=== PATIENT | male | born 1950 | race Caucasian/White ===

== ENCOUNTER 2017-01-28 06:43 | Inpatient (IN) | payer OTHER ==
[~2017-01-28] VITALS: Ht 152.4 cm; Wt 58.4 kg
[~2017-01-28 06:43] MED LIST: 0.9 % Sodium Chloride IVF; ACET650S21 PO; AMLO5TAB4 PO; CEPH-368 PO; CITA20TA9 PO; CITA40TA12 PO; CLON0.1T12 PO; CLON0.2T10 PO; DARBEPOETIN; DIPH25CA61 PO; ENOX30SY4 SQ; ERGO500017 PO; FENT1PAT76 TD; FENT1PAT9 TD; HALO5VIA2 IM; HYDR-3138 PO; INSU100C SQ-INSULIN; INSU100C5 SQ-INSULIN; INSU100I18 SQ-INSULIN; INSU100I28 SQ-INSULIN; INSU100V13 SQ; INSU100V5 SQ-INSULIN; INSU100V8 SQ; LEVE250T28 PO; LEVO100T PO; LEVO100T5 PO; LISI1TAB3 PO; LORA2VIA4 IVPush; LOSA25TA2 PO; LOSA25TA5 PO; MEGE400O PO; MEGE400O2 PO; MEGE800O PO; METO5TAB57 PO; METR500T4 PO; OXYC-302 PO; OXYC5CAP4 PO; OXYC5TAB3 PO; PANT20TA2 PO; PHEN50VI3 IVPush; POLY17PO5 PO; SEVE800T PO; SORB1SOL PO; SUCR1TAB PO; VANC1VIA3 PO; Vancomycin Per Pharmacy MC; ZOLP-413 PO; [UNRECOGNIZED DRUG - REMARK] MC
[2017-01-28] MEDS ORDERED: SODIUM CHLORIDE 0.9% 1,000 ML IV ONE ×2 (07:37→11:16)
[2017-01-28] MEDS ORDERED: SODIUM CHLORIDE FLUSH 10ML SYR IVF ONE (08:00)
[2017-01-28] MEDS ORDERED: SODIUM CHLORIDE 0.9% 1,000ML IVBOLUS ONE ×3 (08:00→14:30)
[2017-01-28] MEDS ORDERED: ONDANSETRON 2MG/ML, 2ML IVPush ONE (08:00)
[2017-01-28] MEDS ORDERED: HYDROmorphone 1 MG/ML, 1ML ONE (08:07)
[2017-01-28] MEDS ORDERED: ONDANSETRON 2MG/ML, 2ML ONE (08:07)
[2017-01-28] MEDS: HYDROmorphone 1 MG/ML, 1ML IVPush PRN ×2 (08:18→09:10)
[2017-01-28 08:29] LABS: ASPARTATE AMINO TRANSFERASE 8 U/L (15-37); BLOOD UREA NITROGEN 47 mg/dL (7-18)
[2017-01-28] MEDS ORDERED: LORazepam 2 MG/ML, 1ML IVPush ONE (09:00)
[2017-01-28] MEDS ORDERED: LORazepam 2 MG/ML, 1ML ONE ×2 (09:45→16:32)
[2017-01-28 09:53] LABS: DIFF TOTAL CELLS COUNTED 100 CELL DIFF
[2017-01-28 09:54] LABS: VERIFY COUNTS? YES
[2017-01-28 09:55] LABS: ANISOCYTOSIS 1+
[2017-01-28] MEDS ORDERED: PIPERACILLIN/TAZO/PMX 2.25GM 50 ML IVPB ONE (10:00)
[2017-01-28] MEDS ORDERED: PIPERACILLIN/TAZO 2.25 GM in SODIUM CHLORIDE 0.9% 50 ML IV ONE (10:00)
[2017-01-28] MEDS ORDERED: OMNIPAQUE 350 MG/ML, 100ML BOTTLE ONE (10:25)
[2017-01-28] MEDS ORDERED: METRONIDAZOLE PMX 500MG/100ML 100 ML IV ONE (11:00)
[2017-01-28] MEDS ORDERED: METRONIDAZOLE PMX 500MG/100ML 100 ML ONE (11:14)
[2017-01-28] MEDS: NOREPINEPHRINE 4 MG in SODIUM CHLORIDE 0.9% 246 ML IV PRN (13:02)
[2017-01-28] MEDS ORDERED: FILTER 0.22 MICRON IV PRN (14:00)
[2017-01-28] MEDS ORDERED: AMIODARONE 150 MG in DEXTROSE 5% 100 ML IV ONE (14:00)
[2017-01-28] MEDS: AMIODARONE 900 MG in DEXTROSE 5% 482 ML IV PRN (14:07)
[2017-01-28] MEDS ORDERED: SODIUM CHLORIDE 0.9% 1,000 ML IV SCH (14:10)
[2017-01-28] MEDS ORDERED: ONDANSETRON ODT 4 MG PO PRN (14:30)
[2017-01-28] MEDS ORDERED: LORazepam 2 MG/ML, 1ML IVPush PRN (14:30)
[2017-01-28] MEDS ORDERED: SODIUM CHLORIDE 0.9%, 500ML IVBOLUS PRN ×2 (14:30)
[2017-01-28] MEDS ORDERED: PHARMACY MAY ADJ FOR RENAL FX MC PRN (14:30)
[2017-01-28] MEDS ORDERED: VANCOMYCIN 1,200 MG in SODIUM CHLORIDE 0.9% 250 ML IV STA (15:29)
[2017-01-28 15:41] LABS: ASPARTATE AMINO TRANSFERASE 13 U/L (15-37); BLOOD UREA NITROGEN 48 mg/dL (7-18)
[2017-01-28 15:46] LABS: DIFF TOTAL CELLS COUNTED 100 CELL DIFF
[2017-01-28 15:54] LABS: ANISOCYTOSIS 1+; VERIFY COUNTS? YES
[2017-01-28 16:01] LABS: ABG COLLECTION SITE LEFT RADIAL; COLLATERAL CIRCULATION TESTING NORMAL
[2017-01-28] MEDS: INSULIN ASPART 100 UNITS/ML, PEN SQ-INSULIN SCH ×2 (16:40→20:55)
[2017-01-28] MEDS: LORazepam 2 MG/ML, 1ML IVPush PRN ×2 (16:41→22:49)
[2017-01-28] MEDS: PIPERACILLIN/TAZO 2.25 GM in SODIUM CHLORIDE 0.9% 50 ML IV SCH (18:21)
[2017-01-28] MEDS: morphine SULFATE 10 MG/ML, 1ML IVPush PRN (20:56)
[2017-01-29] MEDS: morphine SULFATE 10 MG/ML, 1ML IVPush PRN ×2 (00:14→14:20)
[2017-01-29] MEDS: PIPERACILLIN/TAZO 2.25 GM in SODIUM CHLORIDE 0.9% 50 ML IV SCH ×2 (03:37→16:39)
[2017-01-29 03:59] LABS: BLOOD UREA NITROGEN 52 mg/dL (7-18)
[2017-01-29 04:15] LABS: ASPARTATE AMINO TRANSFERASE 26 U/L (15-37); TOTAL IRON BINDING CAPACITY 160 mcg/dL (250-450)
[2017-01-29 04:52] VITALS: BP 123/45
[2017-01-29 05:15] LABS: DIFF TOTAL CELLS COUNTED 100 CELL DIFF
[2017-01-29 05:17] LABS: ANISOCYTOSIS 1+
[2017-01-29 05:18] LABS: VERIFY COUNTS? YES
[2017-01-29] MEDS: NOREPINEPHRINE 4 MG in SODIUM CHLORIDE 0.9% 246 ML IV PRN (05:31)
[2017-01-29] MEDS: INSULIN ASPART 100 UNITS/ML, PEN SQ-INSULIN SCH ×4 (07:00→20:06)
[2017-01-29] MEDS: LEVOTHYROXINE 100 MCG INJ IVPush SCH (08:28)
[2017-01-29] MEDS ORDERED: PHENYLEPHRINE 10 MG/ML ONE (09:23)
[2017-01-29] MEDS ORDERED: PROPOFOL 10 MG/ML, 20ML ONE (09:23)
[2017-01-29] MEDS ORDERED: ROCURONIUM 10 MG/ML ONE (09:23)
[2017-01-29] MEDS ORDERED: SUCCINYLCHOLINE 20 MG/ML, 10ML ONE (09:23)
[2017-01-29] MEDS ORDERED: VASOPRESSIN 20 UNIT/ML, 1ML ONE (09:23)
[2017-01-29 10:49] LABS: HEP B SURF. AB 91.2 mIU/mL (0.0-10.0)
[2017-01-29] MEDS ORDERED: KETAMINE 10 MG/ML, 20ML ONE (10:51)
[2017-01-29] MEDS ORDERED: FENTANYL PF 250 MCG/5ML ONE (10:51)
[2017-01-29] MEDS ORDERED: MIDAZOLAM 1 MG/ML, 2ML ONE (10:51)
[2017-01-29] MEDS ORDERED: THROMBIN 5,000 UNIT VIAL TP ONE (11:03)
[2017-01-29] MEDS ORDERED: BACITRACIN 50,000 UNIT ONE (11:03)
[2017-01-29] MEDS ORDERED: BUPIVACAINE/PF-EPI 0.5% 1:200K ONE (11:03)
[2017-01-29] MEDS ORDERED: HYDROmorphone 1 MG/ML, 1ML ONE (12:59)
[2017-01-29] MEDS ORDERED: TPN PER PHARMACY MC PRN (14:00)
[2017-01-29] MEDS ORDERED: FENTANYL PF 100 MCG/2ML IVPush PRN ×2 (14:30→16:00)
[2017-01-29] MEDS ORDERED: FENTANYL PF 2,500 MCG in SODIUM CHLORIDE 0.9% 200 ML IV PRN (15:00)
[2017-01-29] MEDS ORDERED: VASOPRESSIN 100 UNIT in SODIUM CHLORIDE 0.9% 495 ML IV PRN (15:35)
[2017-01-29] MEDS: AMIODARONE 900 MG in DEXTROSE 5% 482 ML IV PRN (15:41)
[2017-01-29] MEDS ORDERED: BISACODYL 10 MG SUPP PR PRN (16:00)
[2017-01-29] MEDS ORDERED: GLUCAGON 1 MG IM PRN (16:00)
[2017-01-29] MEDS ORDERED: LACTULOSE 20 GM/30 ML UDC NG PRN (16:00)
[2017-01-29] MEDS ORDERED: SENNOSIDES 8.8 MG/5 ML ORAL SOL NG PRN (16:00)
[2017-01-29] MEDS ORDERED: SENNA/DOCUSATE TABLET NG PRN (16:00)
[2017-01-29] MEDS ORDERED: ALBUTEROL/IPRATROPIUM 2.5MG/0.5MG, 3 ML INLINE PRN (16:00)
[2017-01-29] MEDS: PROPOFOL 100 ML IV PRN (16:38)
[2017-01-29] MEDS: PANTOPRAZOLE 80 MG in SODIUM CHLORIDE 0.9% 100 ML IV SCH (17:59)
[2017-01-29] MEDS ORDERED: AMIODARONE 150 MG in DEXTROSE 5% 100 ML IV ONE (18:00)
[2017-01-29] MEDS ORDERED: PHENYLEPHRINE 20 MG in SODIUM CHLORIDE 0.9% 248 ML IV PRN (18:30)
[2017-01-29 19:04] LABS: IS PT STATUS REG ER OR PRE ER? NO
[2017-01-29 20:37] LABS: DIFF TOTAL CELLS COUNTED 100 CELL DIFF
[2017-01-29 20:39] LABS: VERIFY COUNTS? YES
[2017-01-29] MEDS ORDERED: SODIUM CHLORIDE 0.9%, 500ML IVBOLUS ONE (21:00)
[2017-01-30 03:09] LABS: IS PT STATUS REG ER OR PRE ER? NO
[2017-01-30] MEDS: NOREPINEPHRINE 4 MG in SODIUM CHLORIDE 0.9% 246 ML IV PRN ×2 (03:36→12:19)
[2017-01-30] MEDS: PROPOFOL 100 ML IV PRN (03:37)
[2017-01-30] MEDS: PIPERACILLIN/TAZO 2.25 GM in SODIUM CHLORIDE 0.9% 50 ML IV SCH ×2 (03:38→15:28)
[2017-01-30] MEDS: PANTOPRAZOLE 80 MG in SODIUM CHLORIDE 0.9% 100 ML IV SCH ×3 (03:38→22:56)
[2017-01-30 04:21] LABS: ABG COLLECTION SITE ARTERIAL LINE
[2017-01-30 04:32] VITALS: BP 133/57
[2017-01-30 04:35] LABS: BLOOD UREA NITROGEN 29 mg/dL (7-18)
[2017-01-30 05:04] LABS: DIFF TOTAL CELLS COUNTED 100 CELL DIFF
[2017-01-30 05:06] LABS: VERIFY COUNTS? YES
[2017-01-30 05:09] LABS: ANISOCYTOSIS 1+
[2017-01-30] MEDS: INSULIN ASPART 100 UNITS/ML, PEN SQ-INSULIN SCH ×4 (08:11→20:51)
[2017-01-30] MEDS: LEVOTHYROXINE 100 MCG INJ IVPush SCH (08:12)
[2017-01-30] MEDS ORDERED: FILTER, DISP 1.2 MICRON FOR TPN/PVN IV PRN (10:30)
[2017-01-30] MEDS: AMIODARONE 900 MG in DEXTROSE 5% 482 ML IV PRN (10:50)
[2017-01-30] MEDS ORDERED: ONDANSETRON 2MG/ML, 2ML ONE (15:23)
[2017-01-30] MEDS: ONDANSETRON 2MG/ML, 2ML IVPush PRN ×2 (16:49→22:55)
[2017-01-30] MEDS ORDERED: [UNRECOGNIZED DRUG - OTHER] IV SCH (17:00)
[2017-01-30] MEDS ORDERED: FAT EMULSIONS IV SCH ×2 (17:00)
[2017-01-30] MEDS ORDERED: [UNRECOGNIZED DRUG - OTHER] IV SCH (17:00)
[2017-01-30] MEDS ORDERED: DEXTROSE 10% 500 ML IV PRN (17:00)
[2017-01-30] MEDS ORDERED: DEXTROSE 50%, 50ML SYRINGE IVPush PRN (17:00)
[2017-01-30] MEDS ORDERED: DEXTROSE 70% IV SCH ×2 (17:00)
[2017-01-30] MEDS ORDERED: AMINO ACID 10% IV SCH ×2 (17:00)
[2017-01-30] MEDS ORDERED: NOREPINEPHRINE 4 MG in SODIUM CHLORIDE 0.9% 246 ML IV PRN (17:30)
[2017-01-30] MEDS ORDERED: [UNRECOGNIZED DRUG - REMARK] MC SCH (17:30)
[2017-01-30] MEDS: FENTANYL PF 2,500 MCG in SODIUM CHLORIDE 0.9% 200 ML IV PRN (19:25)
[2017-01-30] MEDS: PIPERACILLIN/TAZO/PMX 2.25GM 50 ML IV SCH (22:55)
[2017-01-31] VITALS (7 sets, daily range): BP systolic 106–124; BP diastolic 41–57
[2017-01-31] MEDS: INSULIN ASPART 100 UNITS/ML, PEN SQ-INSULIN SCH ×2 (03:01→07:48)
[2017-01-31 05:48] LABS: ASPARTATE AMINO TRANSFERASE 17 U/L (15-37); BLOOD UREA NITROGEN 43 mg/dL (7-18)
[2017-01-31] MEDS: ONDANSETRON 2MG/ML, 2ML IVPush PRN ×3 (05:52→20:22)
[2017-01-31 05:58] LABS: ABG COLLECTION SITE LEFT RADIAL; COLLATERAL CIRCULATION TESTING NORMAL
[2017-01-31 07:53] LABS: DIFF TOTAL CELLS COUNTED 100 CELL DIFF
[2017-01-31 08:28] LABS: ANISOCYTOSIS 1+; VERIFY COUNTS? YES
[2017-01-31] MEDS: LEVOTHYROXINE 100 MCG INJ IVPush SCH (13:54)
[2017-01-31] MEDS: PIPERACILLIN/TAZO/PMX 2.25GM 50 ML IV SCH (13:55)
[2017-01-31] MEDS: HEPARIN 5,000 UNITS/ML, 1ML SQ SCH ×2 (13:56→22:27)
[2017-01-31] MEDS: INSULIN ASPART 100 UNIT/ML SQ-INSULIN SCH ×2 (14:00→20:06)
[2017-01-31] MEDS: AMIODARONE 900 MG in DEXTROSE 5% 482 ML IV PRN (14:10)
[2017-01-31] MEDS ORDERED: AMPICILLIN/SULBACTAM 3 GM in SODIUM CHLORIDE 0.9% 100 ML IV SCH (14:30)
[2017-01-31] MEDS: AMPICILLIN/SULBACTAM 3 GM in SODIUM CHLORIDE 0.9% 100 ML IV SCH (15:49)
[2017-01-31] MEDS ORDERED: FAT EMULSIONS IV SCH (17:00)
[2017-01-31] MEDS ORDERED: PANTOPRAZOLE 40 MG IV IVPush SCH (17:00)
[2017-01-31] MEDS ORDERED: AMINO ACID 10% IV SCH (17:00)
[2017-01-31] MEDS ORDERED: [UNRECOGNIZED DRUG - OTHER] IV SCH (17:00)
[2017-01-31] MEDS ORDERED: DEXTROSE 70% IV SCH (17:00)
[2017-01-31] MEDS: FENTANYL PF 2,500 MCG in SODIUM CHLORIDE 0.9% 200 ML IV PRN (20:07)
[2017-01-31] MEDS: LORazepam 2 MG/ML, 1ML IVPush PRN (22:27)
[2017-02-01] MEDS: PIPERACILLIN/TAZO/PMX 2.25GM 50 ML IV SCH (01:58)
[2017-02-01] MEDS: INSULIN ASPART 100 UNIT/ML SQ-INSULIN SCH ×4 (02:02→21:44)
[2017-02-01] MEDS ORDERED: DEXTROSE 50%, 50ML VIAL ONE (05:33)
[2017-02-01] MEDS: DEXTROSE 50%, 50ML SYRINGE IVPush PRN ×2 (05:45→13:21)
[2017-02-01 06:01] LABS: BLOOD UREA NITROGEN 31 mg/dL (7-18)
[2017-02-01] MEDS: HEPARIN 5,000 UNITS/ML, 1ML SQ SCH ×2 (06:07→16:07)
[2017-02-01 06:27] LABS: DIFF TOTAL CELLS COUNTED 100 CELL DIFF
[2017-02-01 06:30] LABS: ANISOCYTOSIS 1+; VERIFY COUNTS? YES
[2017-02-01 06:32] LABS: OVALOCYTES 1+
[2017-02-01 06:59] LABS: ABG COLLECTION SITE LEFT BRACHIAL; COLLATERAL CIRCULATION TESTING NORMAL
[2017-02-01] MEDS ORDERED: DEXTROSE 5% IV ONE (08:00)
[2017-02-01] MEDS ORDERED: POTASSIUM CHLORIDE IV ONE (08:00)
[2017-02-01] MEDS: LEVOTHYROXINE 100 MCG INJ IVPush SCH (08:03)
[2017-02-01] MEDS: ONDANSETRON 2MG/ML, 2ML IVPush PRN ×3 (11:52→21:07)
[2017-02-01 12:20] VITALS: BP 112/67
[2017-02-01] MEDS: AMPICILLIN/SULBACTAM 3 GM in SODIUM CHLORIDE 0.9% 100 ML IV SCH (15:56)
[2017-02-01] MEDS ORDERED: FILTER 0.22 MICRON IV PRN (16:30)
[2017-02-01] MEDS ORDERED: FAT EMULSIONS IV SCH (17:00)
[2017-02-01] MEDS ORDERED: [UNRECOGNIZED DRUG - OTHER] IV SCH (17:00)
[2017-02-01] MEDS ORDERED: AMINO ACID 10% IV SCH (17:00)
[2017-02-01] MEDS ORDERED: DEXTROSE 70% IV SCH (17:00)
[2017-02-01] MEDS: AMIODARONE 900 MG in DEXTROSE 5% 482 ML IV PRN (17:38)
[2017-02-01 19:39] VITALS: BP 132/70
[2017-02-01] MEDS ORDERED: PROMETHAZINE 25 MG/ML, 1ML IM PRN (23:30)
[2017-02-01] MEDS ORDERED: FENTANYL 1500 MCG/30 ML PCA IV SCH (23:30)
[2017-02-01] MEDS ORDERED: FENTANYL PF 2,500 MCG in SODIUM CHLORIDE 0.9% 200 ML IV SCH (23:45)
[2017-02-02] MEDS: ONDANSETRON 2MG/ML, 2ML IVPush SCH ×6 (00:13→21:50)
[2017-02-02] MEDS: HEPARIN 5,000 UNITS/ML, 1ML SQ SCH ×3 (00:13→15:49)
[2017-02-02 00:59] VITALS: BP 149/81
[2017-02-02] MEDS: INSULIN ASPART 100 UNIT/ML SQ-INSULIN SCH ×4 (01:45→20:24)
[2017-02-02] MEDS ORDERED: ONDANSETRON 2MG/ML, 2ML IVPush SCH (02:00)
[2017-02-02] MEDS ORDERED: ONDANSETRON ODT 4 MG PO SCH (02:30)
[2017-02-02 04:24] LABS: BLOOD UREA NITROGEN 57 mg/dL (7-18)
[2017-02-02 05:06] LABS: DIFF TOTAL CELLS COUNTED 100 CELL DIFF
[2017-02-02 05:09] LABS: ANISOCYTOSIS 1+
[2017-02-02 05:10] LABS: LARGE PLATELETS 1+; VERIFY COUNTS? YES
[2017-02-02 06:42] VITALS: BP 150/79
[2017-02-02] MEDS: LEVOTHYROXINE 100 MCG INJ IVPush SCH (08:23)
[2017-02-02 09:34] LABS: BLOOD UREA NITROGEN 63 mg/dL (7-18)
[2017-02-02 09:38] LABS: ASPARTATE AMINO TRANSFERASE 12 U/L (15-37)
[2017-02-02 13:56] VITALS: BP 160/78
[2017-02-02] MEDS: AMPICILLIN/SULBACTAM 3 GM in SODIUM CHLORIDE 0.9% 100 ML IV SCH (15:49)
[2017-02-02] MEDS ORDERED: FAT EMULSIONS IV SCH ×3 (17:00)
[2017-02-02] MEDS ORDERED: [UNRECOGNIZED DRUG - OTHER] IV SCH (17:00)
[2017-02-02] MEDS ORDERED: DEXTROSE 70% IV SCH ×3 (17:00)
[2017-02-02] MEDS ORDERED: AMINO ACID 10% IV SCH ×3 (17:00)
[2017-02-02] MEDS ORDERED: [UNRECOGNIZED DRUG - OTHER] IV SCH (17:00)
[2017-02-02] MEDS ORDERED: [UNRECOGNIZED DRUG - OTHER] IV SCH (17:00)
[2017-02-02] MEDS: FILTER, DISP 1.2 MICRON FOR TPN/PVN IV PRN (18:18)
[2017-02-02 19:40] VITALS: BP 151/73
[2017-02-02 23:02] VITALS: BP 143/73
[2017-02-02] MEDS: morphine SULFATE 10 MG/ML, 1ML IVPush PRN (23:03)
[2017-02-02] MEDS ORDERED: FENTANYL PF 2,500 MCG in SODIUM CHLORIDE 0.9% 200 ML IV SCH (23:45)
[2017-02-03 00:50] VITALS: BP 151/70
[2017-02-03] MEDS: INSULIN ASPART 100 UNIT/ML SQ-INSULIN SCH ×4 (02:00→20:00)
[2017-02-03] MEDS: HEPARIN 5,000 UNITS/ML, 1ML SQ SCH ×4 (02:59→23:22)
[2017-02-03] MEDS: ONDANSETRON 2MG/ML, 2ML IVPush SCH ×5 (03:17→21:29)
[2017-02-03 03:41] LABS: BLOOD UREA NITROGEN 38 mg/dL (7-18)
[2017-02-03 07:04] VITALS: BP 174/71
[2017-02-03] MEDS ORDERED: POTASSIUM PHOSPHATE 22 MEQ in SODIUM CHLORIDE 0.9% 250 ML IV ONE (08:30)
[2017-02-03 09:20] LABS: ASPARTATE AMINO TRANSFERASE 9 U/L (15-37); BLOOD UREA NITROGEN 45 mg/dL (7-18)
[2017-02-03] MEDS: LEVOTHYROXINE 100 MCG INJ IVPush SCH (09:44)
[2017-02-03 14:44] VITALS: BP 176/77
[2017-02-03] MEDS ORDERED: MORPHINE SULFATE 4 MG/ML, 1ML ONE (14:46)
[2017-02-03] MEDS: morphine SULFATE 10 MG/ML, 1ML IVPush PRN ×2 (14:53→23:21)
[2017-02-03] MEDS: AMPICILLIN/SULBACTAM 3 GM in SODIUM CHLORIDE 0.9% 100 ML IV SCH (15:49)
[2017-02-03] MEDS ORDERED: DEXTROSE 70% IV SCH (17:00)
[2017-02-03] MEDS ORDERED: [UNRECOGNIZED DRUG - OTHER] IV SCH (17:00)
[2017-02-03] MEDS ORDERED: FAT EMULSIONS IV SCH (17:00)
[2017-02-03] MEDS ORDERED: AMINO ACID 10% IV SCH (17:00)
[2017-02-03] MEDS: FILTER, DISP 1.2 MICRON FOR TPN/PVN IV PRN (18:19)
[2017-02-03 19:24] VITALS: BP 167/79
[2017-02-03] MEDS ORDERED: PHARMACY MAY ADJ FOR RENAL FX MC PRN (20:30)
[2017-02-03] MEDS ORDERED: TPN PER PHARMACY MC PRN (20:30)
[2017-02-03] MEDS ORDERED: ALBUTEROL/IPRATROPIUM 2.5MG/0.5MG, 3 ML INLINE PRN (20:30)
[2017-02-03] MEDS ORDERED: BISACODYL 10 MG SUPP PR PRN (20:30)
[2017-02-03] MEDS ORDERED: FILTER 0.22 MICRON IV PRN (20:30)
[2017-02-03] MEDS ORDERED: LACTULOSE 20 GM/30 ML UDC NG PRN (20:30)
[2017-02-03] MEDS ORDERED: GLUCAGON 1 MG IM PRN (20:30)
[2017-02-03] MEDS: FENTANYL PF 2,500 MCG in SODIUM CHLORIDE 0.9% 200 ML IV SCH (23:45)
[2017-02-04] MEDS ORDERED: ALBUTEROL/IPRATROPIUM 2.5MG/0.5MG, 3 ML NPPB PRN (00:30)
[2017-02-04 01:45] VITALS: BP 168/65
[2017-02-04] MEDS: INSULIN ASPART 100 UNIT/ML SQ-INSULIN SCH ×4 (03:00→20:00)
[2017-02-04] MEDS: ONDANSETRON 2MG/ML, 2ML IVPush SCH ×6 (03:04→20:51)
[2017-02-04] MEDS: FENTANYL PF 2,500 MCG in SODIUM CHLORIDE 0.9% 200 ML IV SCH (03:50)
[2017-02-04 06:22] LABS: ASPARTATE AMINO TRANSFERASE 12 U/L (15-37); BLOOD UREA NITROGEN 65 mg/dL (7-18)
[2017-02-04] MEDS: morphine SULFATE 10 MG/ML, 1ML IVPush PRN ×3 (07:27→23:58)
[2017-02-04 07:38] VITALS: BP 138/68
[2017-02-04] MEDS: LEVOTHYROXINE 100 MCG INJ IVPush SCH (09:40)
[2017-02-04] MEDS: HEPARIN 5,000 UNITS/ML, 1ML SQ SCH ×2 (09:40→17:45)
[2017-02-04] MEDS: ALBUMIN HUMAN 25% 100 ML IV SCH ×2 (14:05→20:34)
[2017-02-04 14:45] VITALS: BP 170/74
[2017-02-04] MEDS: AMPICILLIN/SULBACTAM 3 GM in SODIUM CHLORIDE 0.9% 100 ML IV SCH (15:45)
[2017-02-04 16:03] VITALS: BP 170/74
[2017-02-04] MEDS ORDERED: DEXTROSE 70% IV SCH (17:00)
[2017-02-04] MEDS ORDERED: FAT EMULSIONS IV SCH (17:00)
[2017-02-04] MEDS ORDERED: AMINO ACID 10% IV SCH (17:00)
[2017-02-04] MEDS ORDERED: [UNRECOGNIZED DRUG - OTHER] IV SCH (17:00)
[2017-02-04] MEDS: FILTER, DISP 1.2 MICRON FOR TPN/PVN IV PRN (17:45)
[2017-02-04 18:56] VITALS: BP 178/90
[2017-02-05 02:00] VITALS: BP 165/70
[2017-02-05] MEDS: HEPARIN 5,000 UNITS/ML, 1ML SQ SCH ×3 (02:00→17:18)
[2017-02-05] MEDS: INSULIN ASPART 100 UNIT/ML SQ-INSULIN SCH ×4 (02:00→20:00)
[2017-02-05] MEDS: ALBUMIN HUMAN 25% 100 ML IV SCH ×2 (02:00→08:07)
[2017-02-05] MEDS: DEXTROSE 50%, 50ML SYRINGE IVPush PRN ×3 (02:45→14:40)
[2017-02-05] MEDS: ONDANSETRON 2MG/ML, 2ML IVPush SCH ×6 (05:00→21:02)
[2017-02-05] MEDS: morphine SULFATE 10 MG/ML, 1ML IVPush PRN ×2 (06:00→21:03)
[2017-02-05 06:38] LABS: BLOOD UREA NITROGEN 86 mg/dL (7-18)
[2017-02-05 07:54] VITALS: BP 192/70
[2017-02-05] MEDS: LEVOTHYROXINE 100 MCG INJ IVPush SCH (08:07)
[2017-02-05 09:46] LABS: ASPARTATE AMINO TRANSFERASE 5 U/L (15-37); BLOOD UREA NITROGEN 67 mg/dL (7-18)
[2017-02-05] MEDS: METRONIDAZOLE PMX 500MG/100ML 100 ML IV SCH ×2 (11:47→19:26)
[2017-02-05 14:17] VITALS: BP 158/58
[2017-02-05] MEDS: AMPICILLIN/SULBACTAM 3 GM in SODIUM CHLORIDE 0.9% 100 ML IV SCH (15:26)
[2017-02-05] MEDS ORDERED: AMINO ACID 10% IV SCH (17:00)
[2017-02-05] MEDS ORDERED: DEXTROSE 70% IV SCH (17:00)
[2017-02-05] MEDS ORDERED: [UNRECOGNIZED DRUG - OTHER] IV SCH (17:00)
[2017-02-05] MEDS ORDERED: FAT EMULSIONS IV SCH (17:00)
[2017-02-05 19:25] VITALS: BP 170/76
[2017-02-06] MEDS: INSULIN ASPART 100 UNIT/ML SQ-INSULIN SCH ×4 (01:54→20:32)
[2017-02-06] MEDS: ONDANSETRON 2MG/ML, 2ML IVPush SCH ×6 (01:55→22:01)
[2017-02-06] MEDS: HEPARIN 5,000 UNITS/ML, 1ML SQ SCH ×3 (01:55→20:09)
[2017-02-06 01:56] VITALS: BP 156/72
[2017-02-06] MEDS: METRONIDAZOLE PMX 500MG/100ML 100 ML IV SCH ×3 (03:00→20:09)
[2017-02-06 05:54] LABS: BLOOD UREA NITROGEN 50 mg/dL (7-18)
[2017-02-06 07:05] VITALS: BP 151/76
[2017-02-06] MEDS: morphine SULFATE 10 MG/ML, 1ML IVPush PRN ×3 (07:47→22:01)
[2017-02-06] MEDS: LEVOTHYROXINE 100 MCG INJ IVPush SCH (07:47)
[2017-02-06 10:27] LABS: ASPARTATE AMINO TRANSFERASE 6 U/L (15-37)
[2017-02-06] MEDS: FENTANYL PF 2,500 MCG in SODIUM CHLORIDE 0.9% 200 ML IV SCH (10:37)
[2017-02-06 15:45] VITALS: BP 159/76
[2017-02-06] MEDS: AMPICILLIN/SULBACTAM 3 GM in SODIUM CHLORIDE 0.9% 100 ML IV SCH (15:53)
[2017-02-06] MEDS ORDERED: AMINO ACID 10% IV SCH (17:00)
[2017-02-06] MEDS ORDERED: FAT EMULSIONS IV SCH (17:00)
[2017-02-06] MEDS ORDERED: DEXTROSE 70% IV SCH (17:00)
[2017-02-06] MEDS ORDERED: [UNRECOGNIZED DRUG - OTHER] IV SCH (17:00)
[2017-02-06] MEDS: FILTER, DISP 1.2 MICRON FOR TPN/PVN IV PRN (17:41)
[2017-02-06 20:00] VITALS: BP 144/69
[2017-02-06] MEDS ORDERED: FENTANYL PF 2,500 MCG in SODIUM CHLORIDE 0.9% 200 ML IV SCH (23:45)
[2017-02-07 02:00] VITALS: BP 126/61
[2017-02-07] MEDS: ONDANSETRON 2MG/ML, 2ML IVPush SCH ×3 (02:52→11:46)
[2017-02-07 03:30] LABS: BLOOD UREA NITROGEN 76 mg/dL (7-18)
[2017-02-07] MEDS: morphine SULFATE 10 MG/ML, 1ML IVPush PRN ×2 (03:52→11:45)
[2017-02-07] MEDS: HEPARIN 5,000 UNITS/ML, 1ML SQ SCH ×3 (03:52→21:26)
[2017-02-07] MEDS: INSULIN ASPART 100 UNIT/ML SQ-INSULIN SCH ×4 (03:52→21:26)
[2017-02-07] MEDS: METRONIDAZOLE PMX 500MG/100ML 100 ML IV SCH ×3 (03:53→23:49)
[2017-02-07 08:00] VITALS: BP 132/62
[2017-02-07] MEDS: LEVOTHYROXINE 100 MCG INJ IVPush SCH (11:45)
[2017-02-07 13:15] VITALS: BP 171/67
[2017-02-07] MEDS ORDERED: [UNRECOGNIZED DRUG - OTHER] IV SCH (17:00)
[2017-02-07] MEDS ORDERED: AMINO ACID 10% IV SCH (17:00)
[2017-02-07] MEDS ORDERED: FILTER, DISP 1.2 MICRON FOR TPN/PVN IV PRN (17:00)
[2017-02-07] MEDS ORDERED: DEXTROSE 70% IV SCH (17:00)
[2017-02-07] MEDS ORDERED: FAT EMULSIONS IV SCH (17:00)
[2017-02-07] MEDS: AMPICILLIN/SULBACTAM 3 GM in SODIUM CHLORIDE 0.9% 100 ML IV SCH (17:51)
[2017-02-07 20:00] VITALS: BP 157/61
[2017-02-07] MEDS ORDERED: FENTANYL PF 1,000 MCG in SODIUM CHLORIDE 0.9% 80 ML IV SCH (23:45)
[2017-02-07] MEDS: ONDANSETRON 2MG/ML, 2ML IVPush PRN (23:49)
[2017-02-08 02:00] VITALS: BP 148/71
[2017-02-08] MEDS: INSULIN ASPART 100 UNIT/ML SQ-INSULIN SCH (02:00)
[2017-02-08 04:50] LABS: BLOOD UREA NITROGEN 49 mg/dL (7-18)
[2017-02-08] MEDS: METRONIDAZOLE PMX 500MG/100ML 100 ML IV SCH ×3 (06:29→23:17)
[2017-02-08] MEDS: HEPARIN 5,000 UNITS/ML, 1ML SQ SCH ×3 (06:29→21:08)
[2017-02-08 07:07] VITALS: BP 135/69
[2017-02-08] MEDS ORDERED: NALOXONE 0.4 MG/ML, 1ML ONE (08:14)
[2017-02-08 08:15] VITALS: BP 153/77
[2017-02-08] MEDS ORDERED: NALOXONE 0.4 MG/ML, 1ML IVPush PRN (08:30)
[2017-02-08] MEDS ORDERED: PIPERACILLIN/TAZO 2.25 GM in SODIUM CHLORIDE 0.9% 50 ML IV SCH (09:00)
[2017-02-08] MEDS ORDERED: PIPERACILLIN/TAZO 0.75 GM in SODIUM CHLORIDE 0.9% 50 ML IV SCH (09:00)
[2017-02-08 09:06] VITALS: BP 123/68
[2017-02-08] MEDS ORDERED: PIPERACILLIN/TAZO/PMX 2.25GM 50 ML IV SCH (09:13)
[2017-02-08 10:05] LABS: ASPARTATE AMINO TRANSFERASE 6 U/L (15-37); BLOOD UREA NITROGEN 53 mg/dL (7-18)
[2017-02-08] MEDS ORDERED: ACETAMINOPHEN 325 MG TABLET ONE (10:31)
[2017-02-08] MEDS: LEVOTHYROXINE 100 MCG INJ IVPush SCH (10:40)
[2017-02-08] MEDS: ACETAMINOPHEN 325 MG TABLET PO PRN (10:40)
[2017-02-08] MEDS: INSULIN ASPART 100 UNITS/ML, PEN SQ-INSULIN SCH ×4 (10:41→21:09)
[2017-02-08 12:31] VITALS: BP 131/67
[2017-02-08] MEDS ORDERED: FILTER, DISP 1.2 MICRON FOR TPN/PVN IV PRN (17:00)
[2017-02-08] MEDS ORDERED: FAT EMULSIONS IV SCH ×2 (17:00)
[2017-02-08] MEDS ORDERED: AMINO ACID 10% IV SCH ×2 (17:00)
[2017-02-08] MEDS ORDERED: [UNRECOGNIZED DRUG - OTHER] IV SCH ×2 (17:00)
[2017-02-08] MEDS ORDERED: DEXTROSE 70% IV SCH ×2 (17:00)
[2017-02-08] MEDS: morphine SULFATE 10 MG/ML, 1ML IVPush PRN (17:07)
[2017-02-08] MEDS: ONDANSETRON 2MG/ML, 2ML IVPush PRN (17:07)
[2017-02-08] MEDS ORDERED: OMNIPAQUE 350 MG/ML, 100ML BOTTLE ONE (18:45)
[2017-02-08 20:00] VITALS: BP 137/61
[2017-02-08] MEDS ORDERED: PIPERACILLIN/TAZO 2.25 GM in SODIUM CHLORIDE 0.9% 100 ML IV SCH (21:13)
[2017-02-08] MEDS ORDERED: FENTANYL PF 1,000 MCG in SODIUM CHLORIDE 0.9% 80 ML IV SCH (23:45)
[2017-02-09 02:00] VITALS: BP 136/66
[2017-02-09] MEDS ORDERED: MORPHINE SULFATE 4 MG/ML, 1ML ONE (04:33)
[2017-02-09] MEDS: ONDANSETRON 2MG/ML, 2ML IVPush PRN ×2 (04:38→08:35)
[2017-02-09] MEDS: morphine SULFATE 10 MG/ML, 1ML IVPush PRN ×4 (04:38→22:23)
[2017-02-09 05:24] LABS: BLOOD UREA NITROGEN 69 mg/dL (7-18)
[2017-02-09] MEDS: HEPARIN 5,000 UNITS/ML, 1ML SQ SCH ×3 (05:36→22:19)
[2017-02-09] MEDS: INSULIN ASPART 100 UNITS/ML, PEN SQ-INSULIN SCH ×4 (07:00→22:32)
[2017-02-09 07:32] VITALS: BP 126/65
[2017-02-09] MEDS: METRONIDAZOLE PMX 500MG/100ML 100 ML IV SCH (08:05)
[2017-02-09] MEDS: LEVOTHYROXINE 100 MCG INJ IVPush SCH (08:05)
[2017-02-09] MEDS ORDERED: METOCLOPRAMIDE IV SCH (10:30)
[2017-02-09] MEDS: METOCLOPRAMIDE 5 MG/ML, 2ML IV SCH ×2 (10:48→17:00)
[2017-02-09 12:42] VITALS: BP 138/70
[2017-02-09] MEDS: PIPERACILLIN/TAZO 2.25 GM in NS 50 ML IV SCH (14:20)
[2017-02-09] MEDS: FILTER, DISP 1.2 MICRON FOR TPN/PVN IV PRN (16:58)
[2017-02-09] MEDS ORDERED: DEXTROSE 70% IV SCH (17:00)
[2017-02-09] MEDS ORDERED: AMINO ACID 10% IV SCH (17:00)
[2017-02-09] MEDS ORDERED: [UNRECOGNIZED DRUG - OTHER] IV SCH (17:00)
[2017-02-09] MEDS ORDERED: FAT EMULSIONS IV SCH (17:00)
[2017-02-09 20:19] VITALS: BP 126/63
[2017-02-09] MEDS: MEGESTROL ORAL.SUSP 40 MG/ML PO SCH (22:20)
[2017-02-10] MEDS: morphine SULFATE 10 MG/ML, 1ML IVPush PRN ×5 (03:00→22:47)
[2017-02-10] MEDS: METOCLOPRAMIDE 5 MG/ML, 2ML IV SCH ×3 (03:00→17:53)
[2017-02-10] MEDS: PIPERACILLIN/TAZO 2.25 GM in NS 50 ML IV SCH ×2 (03:00→13:44)
[2017-02-10 03:18] VITALS: BP 123/63
[2017-02-10] MEDS: HEPARIN 5,000 UNITS/ML, 1ML SQ SCH ×3 (04:00→20:00)
[2017-02-10 06:16] LABS: BLOOD UREA NITROGEN 43 mg/dL (7-18)
[2017-02-10 06:40] VITALS: BP 123/60
[2017-02-10] MEDS: INSULIN ASPART 100 UNITS/ML, PEN SQ-INSULIN SCH ×4 (07:00→22:46)
[2017-02-10] MEDS ORDERED: MORPHINE SULFATE 4 MG/ML, 1ML ONE ×4 (08:11→22:35)
[2017-02-10] MEDS: LEVOTHYROXINE 100 MCG INJ IVPush SCH (08:22)
[2017-02-10] MEDS: MEGESTROL ORAL.SUSP 40 MG/ML PO SCH ×2 (08:23→22:46)
[2017-02-10] MEDS ORDERED: POLYETHYLENE GLYCOL 17 GM PACKET PO PRN (10:00)
[2017-02-10 12:57] VITALS: BP 153/62
[2017-02-10] MEDS ORDERED: FAT EMULSIONS IV SCH (17:00)
[2017-02-10] MEDS ORDERED: [UNRECOGNIZED DRUG - OTHER] IV SCH (17:00)
[2017-02-10] MEDS ORDERED: AMINO ACID 10% IV SCH (17:00)
[2017-02-10] MEDS ORDERED: DEXTROSE 70% IV SCH (17:00)
[2017-02-10] MEDS: FILTER, DISP 1.2 MICRON FOR TPN/PVN IV PRN (17:33)
[2017-02-10 20:03] VITALS: BP 150/71
[2017-02-11 01:59] VITALS: BP 145/68
[2017-02-11] MEDS: PIPERACILLIN/TAZO 2.25 GM in NS 50 ML IV SCH ×2 (02:39→15:01)
[2017-02-11] MEDS: METOCLOPRAMIDE 5 MG/ML, 2ML IV SCH ×3 (02:39→17:40)
[2017-02-11] MEDS: morphine SULFATE 10 MG/ML, 1ML IVPush PRN ×4 (02:52→20:11)
[2017-02-11] MEDS: HEPARIN 5,000 UNITS/ML, 1ML SQ SCH ×3 (04:00→20:12)
[2017-02-11 06:09] LABS: ASPARTATE AMINO TRANSFERASE 9 U/L (15-37); BLOOD UREA NITROGEN 67 mg/dL (7-18)
[2017-02-11] MEDS: INSULIN ASPART 100 UNITS/ML, PEN SQ-INSULIN SCH ×4 (07:00→20:13)
[2017-02-11 07:47] VITALS: BP 155/70
[2017-02-11] MEDS: POLYETHYLENE GLYCOL 17 GM PACKET PO SCH (09:00)
[2017-02-11] MEDS ORDERED: MORPHINE SULFATE 4 MG/ML, 1ML ONE ×3 (09:33→20:04)
[2017-02-11] MEDS: LEVOTHYROXINE 100 MCG INJ IVPush SCH (09:38)
[2017-02-11] MEDS: MEGESTROL ORAL.SUSP 40 MG/ML PO SCH ×2 (09:38→20:12)
[2017-02-11 15:37] VITALS: BP 173/74
[2017-02-11] MEDS ORDERED: FAT EMULSIONS IV SCH (17:00)
[2017-02-11] MEDS ORDERED: AMINO ACID 10% IV SCH (17:00)
[2017-02-11] MEDS ORDERED: DEXTROSE 70% IV SCH (17:00)
[2017-02-11] MEDS ORDERED: [UNRECOGNIZED DRUG - OTHER] IV SCH (17:00)
[2017-02-11] MEDS: FILTER, DISP 1.2 MICRON FOR TPN/PVN IV PRN (17:40)
[2017-02-11 20:04] VITALS: BP 157/64
[2017-02-11] MEDS: ONDANSETRON 2MG/ML, 2ML IVPush PRN (20:11)
[2017-02-12] MEDS ORDERED: MORPHINE SULFATE 4 MG/ML, 1ML ONE (01:14)
[2017-02-12] MEDS: morphine SULFATE 10 MG/ML, 1ML IVPush PRN ×3 (01:17→17:42)
[2017-02-12 02:03] VITALS: BP 163/62
[2017-02-12] MEDS: METOCLOPRAMIDE 5 MG/ML, 2ML IV SCH ×3 (03:19→17:42)
[2017-02-12] MEDS: PIPERACILLIN/TAZO 2.25 GM in NS 50 ML IV SCH ×2 (03:19→15:58)
[2017-02-12] MEDS: HEPARIN 5,000 UNITS/ML, 1ML SQ SCH ×3 (03:19→22:19)
[2017-02-12 04:09] LABS: ASPARTATE AMINO TRANSFERASE 6 U/L (15-37); BLOOD UREA NITROGEN 83 mg/dL (7-18)
[2017-02-12 04:12] LABS: TOTAL IRON BINDING CAPACITY 129 mcg/dL (250-450)
[2017-02-12 06:50] VITALS: BP 171/75
[2017-02-12] MEDS: POLYETHYLENE GLYCOL 17 GM PACKET PO SCH (09:00)
[2017-02-12] MEDS: MEGESTROL ORAL.SUSP 40 MG/ML PO SCH ×2 (09:04→22:19)
[2017-02-12] MEDS: ONDANSETRON 2MG/ML, 2ML IVPush PRN (09:05)
[2017-02-12] MEDS: INSULIN ASPART 100 UNITS/ML, PEN SQ-INSULIN SCH ×4 (09:05→22:20)
[2017-02-12] MEDS: ACETAMINOPHEN 325 MG TABLET PO PRN (10:20)
[2017-02-12 12:38] VITALS: BP 155/67
[2017-02-12] MEDS: LEVOTHYROXINE 100 MCG INJ IVPush SCH (12:57)
[2017-02-12 20:00] VITALS: BP 126/86
[2017-02-12] MEDS: FAMOTIDINE 20 MG TABLET PO SCH (22:19)
[2017-02-13 01:15] VITALS: BP 146/69
[2017-02-13] MEDS: METOCLOPRAMIDE 5 MG/ML, 2ML IV SCH ×3 (04:29→18:22)
[2017-02-13] MEDS: PIPERACILLIN/TAZO 2.25 GM in NS 50 ML IV SCH ×2 (04:29→14:41)
[2017-02-13] MEDS: HEPARIN 5,000 UNITS/ML, 1ML SQ SCH ×3 (04:31→20:14)
[2017-02-13 06:22] LABS: ASPARTATE AMINO TRANSFERASE 15 U/L (15-37); BLOOD UREA NITROGEN 55 mg/dL (7-18)
[2017-02-13] MEDS: POLYETHYLENE GLYCOL 17 GM PACKET PO SCH (08:04)
[2017-02-13 08:08] VITALS: BP 137/73
[2017-02-13] MEDS: LEVOTHYROXINE 100 MCG INJ IVPush SCH (08:57)
[2017-02-13] MEDS: MEGESTROL ORAL.SUSP 40 MG/ML PO SCH ×2 (08:58→20:15)
[2017-02-13] MEDS: INSULIN ASPART 100 UNITS/ML, PEN SQ-INSULIN SCH ×4 (08:58→20:28)
[2017-02-13] MEDS: morphine SULFATE 10 MG/ML, 1ML IVPush PRN ×2 (09:29→12:39)
[2017-02-13] MEDS: ONDANSETRON 2MG/ML, 2ML IVPush PRN (12:12)
[2017-02-13 14:40] VITALS: BP 139/54
[2017-02-13 20:00] VITALS: BP 160/64
[2017-02-13] MEDS: FAMOTIDINE 20 MG TABLET PO SCH (20:14)
[2017-02-14 02:00] VITALS: BP 163/73
[2017-02-14] MEDS: PIPERACILLIN/TAZO 2.25 GM in NS 50 ML IV SCH ×2 (02:20→14:32)
[2017-02-14] MEDS: METOCLOPRAMIDE 5 MG/ML, 2ML IV SCH ×3 (02:20→18:15)
[2017-02-14] MEDS: morphine SULFATE 10 MG/ML, 1ML IVPush PRN ×4 (02:35→23:03)
[2017-02-14] MEDS: HEPARIN 5,000 UNITS/ML, 1ML SQ SCH ×3 (04:02→21:01)
[2017-02-14 06:32] LABS: BLOOD UREA NITROGEN 90 mg/dL (7-18)
[2017-02-14 06:42] VITALS: BP 159/92
[2017-02-14] MEDS: POLYETHYLENE GLYCOL 17 GM PACKET PO SCH (07:24)
[2017-02-14] MEDS: LEVOTHYROXINE 100 MCG INJ IVPush SCH (07:32)
[2017-02-14] MEDS: MEGESTROL ORAL.SUSP 40 MG/ML PO SCH ×2 (07:33→21:00)
[2017-02-14] MEDS: INSULIN ASPART 100 UNITS/ML, PEN SQ-INSULIN SCH ×4 (07:41→21:00)
[2017-02-14 13:47] VITALS: BP 167/78
[2017-02-14 20:00] VITALS: BP 172/69
[2017-02-14] MEDS: FAMOTIDINE 20 MG TABLET PO SCH (21:01)
[2017-02-14] MEDS ORDERED: MORPHINE SULFATE 4 MG/ML, 1ML ONE (22:58)
[2017-02-15 02:00] VITALS: BP 154/74
[2017-02-15] MEDS ORDERED: MORPHINE SULFATE 4 MG/ML, 1ML ONE (02:12)
[2017-02-15] MEDS: morphine SULFATE 10 MG/ML, 1ML IVPush PRN ×2 (02:17→11:52)
[2017-02-15] MEDS: HEPARIN 5,000 UNITS/ML, 1ML SQ SCH ×2 (03:11→12:00)
[2017-02-15] MEDS: METOCLOPRAMIDE 5 MG/ML, 2ML IV SCH ×2 (03:12→08:20)
[2017-02-15] MEDS: PIPERACILLIN/TAZO 2.25 GM in NS 50 ML IV SCH ×2 (03:12→14:47)
[2017-02-15 05:44] LABS: BLOOD UREA NITROGEN 51 mg/dL (7-18)
[2017-02-15] MEDS: INSULIN ASPART 100 UNITS/ML, PEN SQ-INSULIN SCH ×2 (08:19→11:58)
[2017-02-15] MEDS: POLYETHYLENE GLYCOL 17 GM PACKET PO SCH (08:20)
[2017-02-15] MEDS: LEVOTHYROXINE 100 MCG INJ IVPush SCH (08:20)
[2017-02-15] MEDS: MEGESTROL ORAL.SUSP 40 MG/ML PO SCH ×2 (08:21→08:30)
[2017-02-15 10:00] VITALS: BP 132/57
[2017-02-15] MEDS: ONDANSETRON 2MG/ML, 2ML IVPush PRN (14:51)
[2017-02-15 14:58] VITALS: BP 145/68
[2017-02-15] MEDS ORDERED: INSU100I18 SQ-INSULIN (15:04)
[2017-02-15] MEDS ORDERED: LEVO100V IVPush (15:04)
[2017-02-15] MEDS ORDERED: MEGE400O2 PO (15:04)
== END 2017-02-15 16:20 | DRG 853 ==
LOC: ED 09:03 → EDIP 10:25 → CCU 12:09 → 5SO 02-01 12:06 → 4EST 02-03 16:21
PROVIDERS: ADMIT Internal Medicine; ATTEND Internal Medicine
PROC: 0DB80ZZ Excision of Small Intestine, Open Approach (ICD-10-PCS; 2017-01-29)
PROC: 0DTJ0ZZ Resection of Appendix, Open Approach (ICD-10-PCS; 2017-01-29)
PROC: 5A1D60Z (ICD-10-PCS; 2017-01-29)
PROC: 30233N1 Transfusion of Nonautologous Red Blood Cells into Peripheral Vein, Percutaneous Approach (ICD-10-PCS; 2017-01-29)
PROC: 0DTF0ZZ Resection of Right Large Intestine, Open Approach (ICD-10-PCS; principal; 2017-01-29 10:45)
PROC: 0WJP4ZZ Inspection of Gastrointestinal Tract, Percutaneous Endoscopic Approach (ICD-10-PCS; 2017-01-29 10:45)
DX: A41.59 Other Gram-negative sepsis (principal); N18.6 End stage renal disease; K35.2 Acute appendicitis with generalized peritonitis; E43 Unspecified severe protein-calorie malnutrition; R65.21 Severe sepsis with septic shock; D61.818 Other pancytopenia; A04.9 Bacterial intestinal infection, unspecified; I12.0 Hypertensive chronic kidney disease with stage 5 chronic kidney disease or end stage renal disease; I48.91 Unspecified atrial fibrillation; I25.10 Atherosclerotic heart disease of native coronary artery without angina pectoris; D63.1 Anemia in chronic kidney disease; E03.9 Hypothyroidism, unspecified; E11.22 Type 2 diabetes mellitus with diabetic chronic kidney disease; E11.51 Type 2 diabetes mellitus with diabetic peripheral angiopathy without gangrene; G89.29 Other chronic pain; E11.649 Type 2 diabetes mellitus with hypoglycemia without coma; E78.5 Hyperlipidemia, unspecified; E86.0 Dehydration; E87.70 Fluid overload, unspecified; G40.909 Epilepsy, unspecified, not intractable, without status epilepticus; J44.9 Chronic obstructive pulmonary disease, unspecified; N50.89 Other specified disorders of the male genital organs; Z79.4 Long term (current) use of insulin; Z79.891 Long term (current) use of opiate analgesic; Z83.3 Family history of diabetes mellitus; I25.2 Old myocardial infarction; Z89.511 Acquired absence of right leg below knee; Z87.891 Personal history of nicotine dependence; Z89.512 Acquired absence of left leg below knee; Z99.2 Dependence on renal dialysis; K66.0 Peritoneal adhesions (postprocedural) (postinfection)
CPT/HCPCS: 36415; 36600; 71010; 74176; 74177; 80048; 80053; 80069; 81001; 82306; 82330; 82550; 82728; 82803; 82947; 82962; 83540; 83550; 83605; 83615; 83690; 83735; 83880; 83970; 84100; 84132; 84134; 84145; 84295; 84443; 84478; 84484; 84550; 85014; 85025; 85347; 85651; 86140; 86704; 86706; 86850; 86900; 86923; 87040; 87046; 87070; 87075; 87076; 87077; 87081; 87086; 87186; 87205; 87324; 87340; 87899; 88304; 88307; 89055; 93005; 94002; 94003; 94640; 96361; 96365; 96366; 96367; 96375; C1729; J0295; J0610; J1170; J1644; J1815; J2250; J2310; J2405; J2543; J2704; J3010; J3370; J3475; J3480; P9047; Q9967; C9113; J0282; J0330; J2060; J2270; J2370; J2765; J3420; J7030; J7040; J7050; J7060; P9016; S0028

== ENCOUNTER → 2017-09-30 | Outpatient (CLI) | payer OTHER ==
[~2017-09-30] MED LIST changes: -HYDR-3138 PO; +HYDR-3237 PO; +LEVO100V IVPush; -METR500T4 PO; +METR500T8 PO; +OXYC5CAP2 PO; -OXYC5CAP4 PO; -SEVE800T PO; +SEVE800T7 PO
== END | disposition home or self-care (01) ==
LOC: CFH 09:59
PROVIDERS: ATTEND Internal Medicine
DX: R13.10 Dysphagia, unspecified (principal); R10.9 Unspecified abdominal pain; Z89.612 Acquired absence of left leg above knee; Z89.611 Acquired absence of right leg above knee
CPT/HCPCS: 74241

== ENCOUNTER 2018-07-30 09:59 | Inpatient (IN) | payer OTHER ==
[~2018-07-30] VITALS: Ht 154.9 cm; Wt 42.3 kg
[~2018-07-30 09:59] MED LIST changes: -LORA2VIA4 IVPush; +LORA2VIA6 IVPush; +LOSA25TA25 PO; -LOSA25TA5 PO; +METR-142 PO; -METR500T8 PO
--- NOTE | 2018-07-30 10:08 | NUR ---
PATIENT GIVEN OJ/PEANUT BUTTER AFTER SWALLOW EVAL
[2018-07-30] MEDS ORDERED: DEXTROSE 50%, 50ML SYRINGE ONE ×2 (10:18→11:39)
[2018-07-30] MEDS ORDERED: GLUCAGON 1 MG ONE (10:18)
[2018-07-30] MEDS ORDERED: PLEASE ENTER HEIGHT AND WEIGHT MC SCH (10:30)
[2018-07-30] MEDS ORDERED: SODIUM CHLORIDE FLUSH 10ML SYR IVF ONE (10:30)
[2018-07-30] MEDS ORDERED: GLUCAGON 1 MG SQ ONE (10:30)
[2018-07-30] MEDS ORDERED: DEXTROSE 50%, 50ML SYRINGE IVPush ONE (10:30)
--- NOTE | 2018-07-30 10:30 | NUR ---
PRESENTS VIA [facility] WITH INCREASING WEAKNESS/POOR APPETITE/LLE AMPUTATION SITE PAIN X 3 DAYS/ EMS REPORTS FSBS OF 38, UNBLE TO PLACE PIC X3, GAVE 15 GR OF DEXTROSE WITH FSBS UP TO 50. AFEBRILE, VSS. CVT TECH IMMEDIATE RECHECKED FSBS ON ARRIVAL (39)-GAVE 1 G GLUCOGON TO [facility] THEN WAS ABLE TO OBTAINE PIV WITH US AND THEN GAVE 50G OF IV DEXTROSE
[2018-07-30] MEDS ORDERED: ONDANSETRON 2MG/ML, 2ML ONE (10:34)
[2018-07-30] MEDS ORDERED: MORPHINE SULFATE 4 MG/ML, 1ML ONE ×2 (10:34→15:06)
--- NOTE | 2018-07-30 10:50 | NUR ---
UNABLE TO COMPLETE MED RECC PATIENT UNSURE OF MEDS AND LISTED PRIMARY CONTACT DID NOT ANSWER PHONE. MADE AWARE
[2018-07-30] MEDS ORDERED: ONDANSETRON 2MG/ML, 2ML IVPush ONE (11:00)
[2018-07-30] MEDS: MORPHINE SULFATE 4 MG/ML, 1ML IVPush PRN ×2 (11:08→15:08)
[2018-07-30 11:14] LABS: ALBUMIN 3.7 g/dL (3.4-5.0); CALCIUM 9.4 mg/dL (8.5-10.1); CHLORIDE 96 mmol/L (98-107); CREATININE 4.42 mg/dL (0.7-1.3)
[2018-07-30 11:23] LABS: CREATINE KINASE, TOTAL 128 U/L (39-308); FREE T4 (FREE THYROXINE) 1.35 ng/dL (0.76-1.46)
[2018-07-30 11:24] LABS: ANION GAP 19 mmol/L (5-15)
[2018-07-30 11:27] LABS: MEAN CORPUSCULAR HEMOGLOBIN 35.2 pg (27.5-34.5); MEAN CORPUSCULAR HGB CONC 33.2 g/dL (33.2-36.2); MEAN CORPUSCULAR VOLUME 105.8 fL (81-97); MEAN PLATELET VOLUME 9.9 fL (7.4-10.4); RED BLOOD COUNT 3.53 x10^6/uL (4.38-5.82); RED CELL DISTRIBUTION WIDTH 19.1 % (9.4-14.8)
[2018-07-30 11:28] LABS: PLATELET COUNT 46 x10^3/uL (130-400)
--- NOTE | 2018-07-30 11:28 | NUR ---
LAB CALLED WITH THE FOLLOWING CRITICAL VALUES WHICH WERE VERBALIZED IN PERSON TO DR. BARBA: TROPONIN [phone] PLATLETS 46
[2018-07-30 11:29] LABS: BASOPHILS # (AUTO) 0.02 x10^3/uL (0-0.1); BASOPHILS % (AUTO) 1 % (0-1); EOSINOPHILS # (AUTO) 0.02 x10^3/uL (0-0.4); EOSINOPHILS % (AUTO) 1 % (1-7); LYMPHOCYTES # (AUTO) 1.03 x10^3/uL (1-3.4); LYMPHOCYTES % (AUTO) 31 % (22-44); MD SCAN; MONOCYTES # (AUTO) 0.25 x10^3/uL (0.2-0.8); MONOCYTES % (AUTO) 8 % (2-9); NEUTROPHILS # (AUTO) 1.98 x10^3/uL (1.8-6.8); NEUTROPHILS % (AUTO) 60 % (42-75)
[2018-07-30] MEDS ORDERED: LORazepam 2 MG/ML, 1ML ONE (11:39)
--- NOTE | 2018-07-30 11:45 | NUR ---
WHILE MD AT BEDSIDE EVALUATING. PATIENT HAD WITNESSES SEIZURE LIKE EVENT (RHYTHMIC BLINKING/ LISTLESS.) AIRWAY NON-COMPROMISED. LOADING DOCK HAND RE-CHECKED FSBS (150) AND PULLED ATIVAN-BUT DID NOT DELIVER EVENT LASTED LESS THAN 10 SECONDS PER MD WHO STAYED AT BEDSIDE
[2018-07-30] MEDS: SODIUM CHLORIDE 0.9% 1,000ML IVBOLUS ONE ×2 (11:53→12:00)
--- NOTE | 2018-07-30 12:02 | NUR ---
Assumed care of patient at this time. Patient is lethargic, oriented x4. Continuous blood pressure, SPO2 and cardiac monitoring in place.
--- NOTE | 2018-07-30 12:04 | NUR ---
CARDIOLOGY AT BEDSIDE
--- NOTE | 2018-07-30 12:15 | NUR ---
Dr. Espinoza at bedside
[2018-07-30] MEDS ORDERED: OMNIPAQUE 350 MG/ML, 100ML BOTTLE ONE (12:46)
--- NOTE | 2018-07-30 12:47 | NUR ---
Returned from CT scan, echocardiogram in progress.
[2018-07-30] MEDS ORDERED: LEVETIRACETAM 1,000 MG in SODIUM CHLORIDE 0.9% 100 ML IV ONE (13:00)
--- NOTE | 2018-07-30 13:07 | NUR ---
Per patient and family, patient has been non compliant with medications since discharge from hospital, taking only what is given to him at dialysis appointments.
--- NOTE | 2018-07-30 13:15 | NUR ---
milena requested from pharmacy
--- NOTE | 2018-07-30 13:40 | NUR ---
Plan of care updated with patient and family, verbalize understanding, questions answered.
--- NOTE | 2018-07-30 14:00 | NUR ---
Dr. Selby at bedside evaluating patient.
[2018-07-30] MEDS ORDERED: POLYETHYLENE GLYCOL 17 GM PACKET PO PRN (14:30)
[2018-07-30] MEDS ORDERED: ZOLPIDEM 5MG TABLET PO PRN (14:30)
[2018-07-30] MEDS ORDERED: NITROGLYCERIN 0.4 MG/SPRAY SL PRN (14:30)
[2018-07-30] MEDS ORDERED: NITROGLYCERIN 0.4 MG BOTTLE (25 TABS) SL PRN (14:30)
[2018-07-30] MEDS ORDERED: ONDANSETRON ODT 4 MG PO PRN (14:30)
[2018-07-30] MEDS: LACTATED RINGERS 1,000 ML IV SCH (14:55)
[2018-07-30 15:25] LABS: ACETONE, SERUM Trace (10mg/dL) mg/dL (Negative)
--- NOTE | 2018-07-30 15:44 | NUR ---
Paged Dr. Selby regarding followup troponin level, none ordered. Per Dr. Selby, draw troponin x1 now verbal order read back and verified.
[2018-07-30] MEDS: INSULIN LISPRO 100 UNITS/ML, PEN SQ-INSULIN SCH ×2 (16:28→21:00)
--- NOTE | 2018-07-30 16:33 | NUR ---
Dr. Sebly notified of critical troponin level, no new orders received. Patient is resting in rfort worth dozing intermittently, reports some pain control after morphine administration.
--- NOTE | 2018-07-30 16:34 | NUR ---
Diet tray ordered
--- NOTE | 2018-07-30 17:18 | NUR ---
Report called, patient to be transported to CCU.
[2018-07-30] MEDS: LACTULOSE 10 GM/15 ML UDC PO SCH (21:32)
[2018-07-30] MEDS: MEGESTROL ORAL.SUSP 40 MG/ML PO SCH (21:33)
[2018-07-30] MEDS: morphine SULFATE 10 MG/ML, 1ML IVPush PRN (21:34)
[2018-07-31] MEDS: morphine SULFATE 10 MG/ML, 1ML IVPush PRN (04:30)
[2018-07-31 04:33] LABS: ANION GAP 12 mmol/L (5-15); CALCIUM 8.5 mg/dL (8.5-10.1); CHLORIDE 98 mmol/L (98-107); MEAN CORPUSCULAR HEMOGLOBIN 35.4 pg (27.5-34.5); MEAN CORPUSCULAR HGB CONC 33.6 g/dL (33.2-36.2); MEAN CORPUSCULAR VOLUME 105.2 fL (81-97); RED BLOOD COUNT 2.98 x10^6/uL (4.38-5.82); RED CELL DISTRIBUTION WIDTH 19.6 % (9.4-14.8)
[2018-07-31 04:44] LABS: ALANINE AMINOTRANSFERASE 279 U/L (12-78); ALKALINE PHOSPHATASE 65 U/L (45-117); BILIRUBIN,TOTAL 1.2 mg/dL (0.2-1.0); CREATININE 5.33 mg/dL (0.7-1.3); TOTAL PROTEIN 5.9 g/dL (6.4-8.2)
[2018-07-31 05:09] LABS: BASOPHILS # (AUTO) 0.02 x10^3/uL (0-0.1); BASOPHILS % (AUTO) 1 % (0-1); EOSINOPHILS # (AUTO) 0.07 x10^3/uL (0-0.4); EOSINOPHILS % (AUTO) 3 % (1-7); LYMPHOCYTES # (AUTO) 1.09 x10^3/uL (1-3.4); LYMPHOCYTES % (AUTO) 37 % (22-44); MD SCAN; MEAN PLATELET VOLUME 9.5 fL (7.4-10.4); MONOCYTES % (AUTO) 10 % (2-9); NEUTROPHILS # (AUTO) 1.44 x10^3/uL (1.8-6.8); NEUTROPHILS % (AUTO) 49 % (42-75)
[2018-07-31 05:19] LABS: HEMOGLOBIN A1C 7.7 % (4.2-6.3)
[2018-07-31 05:22] LABS: PLATELET COUNT 35 x10^3/uL (130-400)
[2018-07-31] MEDS: INSULIN LISPRO 100 UNITS/ML, PEN SQ-INSULIN SCH ×4 (07:00→21:00)
[2018-07-31] MEDS ORDERED: DEXTROSE 50%, 50ML SYRINGE ONE (09:14)
[2018-07-31] MEDS: PANTOPRAZOLE 40 MG IV IVPush SCH (10:29)
[2018-07-31] MEDS: LEVOTHYROXINE 100 MCG INJ IVPush SCH (10:30)
[2018-07-31] MEDS: MEGESTROL ORAL.SUSP 40 MG/ML PO SCH ×2 (10:30→21:18)
[2018-07-31] MEDS: LACTATED RINGERS 1,000 ML IV SCH (10:31)
[2018-07-31] MEDS: LACTULOSE 10 GM/15 ML UDC PO SCH ×2 (10:59→21:18)
[2018-07-31] MEDS ORDERED: DEXTROSE 50%, 50ML SYRINGE IVPush ONE (11:00)
[2018-07-31] MEDS ORDERED: ALBUMIN HUMAN 25% 100 ML IV PRN (19:00)
[2018-08-01 04:28] LABS: MEAN CORPUSCULAR HEMOGLOBIN 34.5 pg (27.5-34.5); MEAN CORPUSCULAR VOLUME 104.7 fL (81-97); MEAN PLATELET VOLUME 9.4 fL (7.4-10.4); RED BLOOD COUNT 2.91 x10^6/uL (4.38-5.82); RED CELL DISTRIBUTION WIDTH 19.3 % (9.4-14.8)
[2018-08-01 04:32] LABS: PLATELET COUNT 33 x10^3/uL (130-400)
[2018-08-01 04:38] LABS: ALBUMIN 3.2 g/dL (3.4-5.0); ANION GAP 11 mmol/L (5-15); CALCIUM 8.6 mg/dL (8.5-10.1); CHLORIDE 100 mmol/L (98-107)
[2018-08-01 04:45] LABS: % IRON SATURATION 41 % (20-55); ALANINE AMINOTRANSFERASE 283 U/L (12-78); ALKALINE PHOSPHATASE 72 U/L (45-117); BILIRUBIN,TOTAL 1.5 mg/dL (0.2-1.0); CREATININE 3.67 mg/dL (0.7-1.3); IRON LEVEL 89 mcg/dL (65-175); TOTAL IRON BINDING CAPACITY 216 mcg/dL (250-450); TOTAL PROTEIN 6.3 g/dL (6.4-8.2)
[2018-08-01 04:46] LABS: BASOPHILS # (AUTO) 0.02 x10^3/uL (0-0.1); BASOPHILS % (AUTO) 1 % (0-1); EOSINOPHILS # (AUTO) 0.05 x10^3/uL (0-0.4); EOSINOPHILS % (AUTO) 2 % (1-7); LYMPHOCYTES # (AUTO) 0.59 x10^3/uL (1-3.4); LYMPHOCYTES % (AUTO) 22 % (22-44); MD SCAN; MONOCYTES # (AUTO) 0.23 x10^3/uL (0.2-0.8); MONOCYTES % (AUTO) 9 % (2-9); NEUTROPHILS # (AUTO) 1.82 x10^3/uL (1.8-6.8); NEUTROPHILS % (AUTO) 67 % (42-75)
[2018-08-01] MEDS: INSULIN LISPRO 100 UNITS/ML, PEN SQ-INSULIN SCH ×4 (07:58→21:00)
[2018-08-01] MEDS: PANTOPRAZOLE 40 MG IV IVPush SCH (07:59)
[2018-08-01] MEDS: morphine SULFATE 10 MG/ML, 1ML IVPush PRN (07:59)
[2018-08-01] MEDS: LEVOTHYROXINE 100 MCG INJ IVPush SCH (07:59)
[2018-08-01 08:00] VITALS: BP 125/42
[2018-08-01] MEDS: MEGESTROL ORAL.SUSP 40 MG/ML PO SCH ×2 (08:32→21:00)
[2018-08-01] MEDS: LACTULOSE 10 GM/15 ML UDC PO SCH ×2 (08:32→21:00)
[2018-08-01] MEDS ORDERED: CARVEDILOL 6.25 MG TABLET ONE (08:35)
[2018-08-01] MEDS: CARVEDILOL 3.125 MG TABLET PO SCH ×2 (08:38→18:17)
[2018-08-01 11:54] VITALS: BP 116/44
[2018-08-01 14:59] VITALS: BP 110/67
[2018-08-01 19:30] VITALS: BP 119/58
[2018-08-01] MEDS ORDERED: ATORVASTATIN 10 MG TABLET PO SCH (21:00)
[2018-08-02] MEDS ORDERED: VANCOMYCIN PER PHARMACY MC PRN (01:30)
[2018-08-02] MEDS ORDERED: PIPERACILLIN/TAZO 2.25 GM in SODIUM CHLORIDE 0.9% 50 ML IV SCH (01:30)
[2018-08-02] MEDS: PIPERACILLIN/TAZO/PMX 2.25GM 50 ML IVPB SCH ×3 (02:00→18:50)
[2018-08-02] MEDS ORDERED: VANCOMYCIN 800 MG in SODIUM CHLORIDE 0.9% 100 ML IV ONE (02:00)
[2018-08-02] MEDS ORDERED: PHARMACOKINETIC CONSULTATION MC ONE (02:00)
[2018-08-02] MEDS ORDERED: PHARMACOKINETIC MONITORING MC PRN (02:00)
[2018-08-02] MEDS ORDERED: PIPERACILLIN/TAZO 0.75 GM in SODIUM CHLORIDE 0.9% 50 ML IV SCH (02:00)
[2018-08-02] MEDS ORDERED: ACETAMINOPHEN 325 MG TABLET ONE (02:10)
[2018-08-02 02:20] LABS: MEAN CORPUSCULAR HEMOGLOBIN 35.2 pg (27.5-34.5); MEAN CORPUSCULAR HGB CONC 33.7 g/dL (33.2-36.2); MEAN CORPUSCULAR VOLUME 104.5 fL (81-97); MEAN PLATELET VOLUME 9.5 fL (7.4-10.4); RED BLOOD COUNT 3.11 x10^6/uL (4.38-5.82); RED CELL DISTRIBUTION WIDTH 19.6 % (9.4-14.8)
[2018-08-02 02:21] LABS: ALANINE AMINOTRANSFERASE 344 U/L (12-78); ALBUMIN 3.2 g/dL (3.4-5.0); ANION GAP 13 mmol/L (5-15); CALCIUM 8.6 mg/dL (8.5-10.1); CHLORIDE 102 mmol/L (98-107); CREATININE 5.51 mg/dL (0.7-1.3)
[2018-08-02 02:22] LABS: PLATELET COUNT 29 x10^3/uL (130-400)
[2018-08-02 02:23] LABS: ALKALINE PHOSPHATASE 63 U/L (45-117); BILIRUBIN,TOTAL 1.9 mg/dL (0.2-1.0); TOTAL PROTEIN 6.3 g/dL (6.4-8.2)
[2018-08-02 02:33] LABS: BASOPHILS # (AUTO) 0.01 x10^3/uL (0-0.1); BASOPHILS % (AUTO) 0 % (0-1); EOSINOPHILS % (AUTO) 0 % (1-7); LYMPHOCYTES # (AUTO) 0.45 x10^3/uL (1-3.4); LYMPHOCYTES % (AUTO) 12 % (22-44); MD SCAN; MONOCYTES # (AUTO) 0.26 x10^3/uL (0.2-0.8); MONOCYTES % (AUTO) 7 % (2-9); NEUTROPHILS # (AUTO) 2.88 x10^3/uL (1.8-6.8); NEUTROPHILS % (AUTO) 80 % (42-75)
[2018-08-02] MEDS: ACETAMINOPHEN 325 MG SUPP PR PRN ×2 (02:35→22:20)
[2018-08-02 02:40] VITALS: BP 93/52
[2018-08-02 06:59] VITALS: BP 123/64
[2018-08-02] MEDS: INSULIN LISPRO 100 UNITS/ML, PEN SQ-INSULIN SCH ×2 (07:00→11:00)
[2018-08-02] MEDS: CARVEDILOL 3.125 MG TABLET PO SCH (08:00)
[2018-08-02] MEDS: LEVOTHYROXINE 100 MCG INJ IVPush SCH (09:00)
[2018-08-02 10:05] VITALS: BP 82/53
[2018-08-02] MEDS ORDERED: SODIUM CHLORIDE 0.9% 1,000ML IVBOLUS ONE (10:30)
[2018-08-02] MEDS ORDERED: LACTATED RINGERS 1,000 ML IVBOLUS ONE (10:30)
[2018-08-02] MEDS ORDERED: LEVOTHYROXINE 100 MCG TABLET ONE (11:15)
[2018-08-02] MEDS: PANTOPROZOLE 40MG TABLET PO SCH (11:18)
[2018-08-02] MEDS: LACTULOSE 10 GM/15 ML UDC PO SCH (11:19)
[2018-08-02] MEDS: MEGESTROL ORAL.SUSP 40 MG/ML PO SCH (11:19)
[2018-08-02] MEDS ORDERED: LEVOTHYROXINE 100 MCG TABLET PO ONE (11:30)
[2018-08-02 12:45] VITALS: BP 83/57
[2018-08-02] MEDS ORDERED: SODIUM CHLORIDE 0.9%, 500ML IVBOLUS ONE (13:00)
[2018-08-02 13:49] LABS: ALANINE AMINOTRANSFERASE 277 U/L (12-78); ALBUMIN 2.9 g/dL (3.4-5.0); ANION GAP 18 mmol/L (5-15); CALCIUM 8.6 mg/dL (8.5-10.1); CHLORIDE 102 mmol/L (98-107)
[2018-08-02 13:52] LABS: ALKALINE PHOSPHATASE 55 U/L (45-117); BILIRUBIN,TOTAL 2.5 mg/dL (0.2-1.0); MEAN CORPUSCULAR HEMOGLOBIN 35.4 pg (27.5-34.5); MEAN CORPUSCULAR HGB CONC 33.6 g/dL (33.2-36.2); MEAN CORPUSCULAR VOLUME 105.4 fL (81-97); MEAN PLATELET VOLUME 9.1 fL (7.4-10.4); PLATELET COUNT 27 x10^3/uL (130-400); RED BLOOD COUNT 3.19 x10^6/uL (4.38-5.82); RED CELL DISTRIBUTION WIDTH 19.9 % (9.4-14.8)
[2018-08-02 14:29] LABS: BASOPHILS # (AUTO) 0.01 x10^3/uL (0-0.1); BASOPHILS % (AUTO) 0 % (0-1); EOSINOPHILS % (AUTO) 0 % (1-7); LYMPHOCYTES # (AUTO) 0.77 x10^3/uL (1-3.4); LYMPHOCYTES % (AUTO) 15 % (22-44); MD SCAN; MONOCYTES # (AUTO) 0.26 x10^3/uL (0.2-0.8); MONOCYTES % (AUTO) 5 % (2-9); NEUTROPHILS # (AUTO) 4.21 x10^3/uL (1.8-6.8); NEUTROPHILS % (AUTO) 80 % (42-75)
[2018-08-02] MEDS ORDERED: NOREPINEPHRINE 4 MG in SODIUM CHLORIDE 0.9% 246 ML IV PRN (14:30)
[2018-08-02] MEDS ORDERED: DEXTROSE 50%, 50ML SYRINGE IVPush PRN ×2 (15:00→16:00)
[2018-08-02] MEDS ORDERED: GLUCAGON 1 MG IM PRN ×2 (15:00→16:00)
[2018-08-02] MEDS ORDERED: DEXTROSE 4 GM TAB.CHEW PO PRN ×2 (15:00→16:00)
[2018-08-02] MEDS ORDERED: MIDAZOLAM 1 MG/ML, 5ML ONE (15:44)
[2018-08-02] MEDS ORDERED: ROCURONIUM 10MG/ML,5ML ONE (15:44)
[2018-08-02] MEDS: ALBUTEROL/IPRATROPIUM 2.5MG/0.5MG, 3 ML INLINE SCH ×3 (16:00→22:18)
[2018-08-02] MEDS ORDERED: LIDOCAINE-MPF 1%, 2ML ENDO PRN (16:00)
[2018-08-02] MEDS ORDERED: PHARMACY MAY ADJ FOR RENAL FX MC SCH (16:00)
[2018-08-02] MEDS ORDERED: INSULIN LISPRO 100 UNITS/ML, PEN SQ-INSULIN SCH (16:00)
[2018-08-02] MEDS: ATORVASTATIN 10 MG TABLET PO SCH (19:58)
[2018-08-02] MEDS: SODIUM CHLORIDE FLUSH 10ML SYR IVF SCH (19:58)
[2018-08-02] MEDS ORDERED: BISACODYL 10 MG SUPP PR PRN (21:00)
[2018-08-02] MEDS ORDERED: SENNOSIDES 8.8 MG/5 ML ORAL SOL NG PRN (21:00)
[2018-08-02] MEDS ORDERED: SENNA/DOCUSATE TABLET NG PRN (21:00)
[2018-08-02] MEDS ORDERED: SODIUM CHLORIDE FLUSH 10ML SYR IVF SCH (21:00)
[2018-08-02 21:39] LABS: CLOSTRIDIUM DIFFICILE ANTIGEN NEGATIVE; CLOSTRIDIUM DIFFICILE TOXIN NEGATIVE (Negative)
[2018-08-02] MEDS: FENTANYL PF 100 MCG/2ML IVPush PRN (22:20)
[2018-08-03] MEDS: INSULIN LISPRO 100 UNITS/ML, PEN SQ-INSULIN SCH ×4 (01:31→20:12)
[2018-08-03] MEDS: FENTANYL PF 100 MCG/2ML IVPush PRN ×2 (01:31→04:08)
[2018-08-03] MEDS: ALBUTEROL/IPRATROPIUM 2.5MG/0.5MG, 3 ML INLINE SCH ×6 (02:55→22:46)
[2018-08-03] MEDS: PIPERACILLIN/TAZO/PMX 2.25GM 50 ML IVPB SCH ×3 (03:10→16:45)
[2018-08-03 04:54] LABS: ALANINE AMINOTRANSFERASE 217 U/L (12-78); ALBUMIN 2.6 g/dL (3.4-5.0); ANION GAP 17 mmol/L (5-15); CALCIUM 7.5 mg/dL (8.5-10.1); CHLORIDE 105 mmol/L (98-107)
[2018-08-03 05:22] LABS: ALKALINE PHOSPHATASE 47 U/L (45-117); BILIRUBIN,TOTAL 2.9 mg/dL (0.2-1.0); CREATININE 6.35 mg/dL (0.7-1.3); TOTAL PROTEIN 5.3 g/dL (6.4-8.2)
[2018-08-03 05:41] LABS: MD YES
[2018-08-03 05:42] LABS: MEAN CORPUSCULAR HEMOGLOBIN 34.8 pg (27.5-34.5); MEAN CORPUSCULAR HGB CONC 33.6 g/dL (33.2-36.2); MEAN CORPUSCULAR VOLUME 103.7 fL (81-97); MEAN PLATELET VOLUME 8.9 fL (7.4-10.4); RED BLOOD COUNT 2.78 x10^6/uL (4.38-5.82); RED CELL DISTRIBUTION WIDTH 19.2 % (9.4-14.8)
[2018-08-03 05:43] LABS: PLATELET COUNT 22 x10^3/uL (130-400)
[2018-08-03 05:44] LABS: BASOPHILS # (AUTO) 0.01 x10^3/uL (0-0.1); BASOPHILS % (AUTO) 0 % (0-1); EOSINOPHILS % (AUTO) 0 % (1-7); LYMPHOCYTES # (AUTO) 0.38 x10^3/uL (1-3.4); LYMPHOCYTES % (AUTO) 11 % (22-44); MONOCYTES % (AUTO) 8 % (2-9); NEUTROPHILS # (AUTO) 2.93 x10^3/uL (1.8-6.8); NEUTROPHILS % (AUTO) 81 % (42-75)
[2018-08-03 05:49] VITALS: BP 101/28
[2018-08-03 05:49] LABS: BAND#(MANUAL) 0.32 x10^3/uL; BANDS%(MANUAL) 9 % (0-7); LYMPH#(MANUAL) 0.61 x10^3/uL (1-3.4); LYMPHS% (MANUAL) 17 % (22-44); METAMYELOCYTES# (MANUAL) 0.04 x10^3/uL (0-0); METAMYELOCYTES% (MANUAL) 1 % (0-1); MONOS#(MANUAL) 0.07 x10^3/uL (0.3-2.7); MONOS% (MANUAL) 2 % (2-9); SEG#(MANUAL) 2.56 x10^3/uL (1.8-6.8); SEGS% (MANUAL) 71 % (42-75)
[2018-08-03 05:50] LABS: <PLATELET ESTIMATE> DECREASED; <PLT MORPHOLOGY> NORMAL PLT MORPH; ANISOCYTOSIS 1+; POLYCHROMASIA 1+
[2018-08-03] MEDS: PANTOPROZOLE 40MG TABLET PO SCH (07:30)
[2018-08-03] MEDS: PROPOFOL 100 ML IV PRN (08:29)
[2018-08-03] MEDS ORDERED: LACTULOSE 20 GM/30 ML UDC NG PRN (09:00)
[2018-08-03] MEDS ORDERED: MAGNESIUM SULFATE PMX 2GM/50ML 50 ML IVPB ONE (09:00)
[2018-08-03] MEDS: NOREPINEPHRINE 4 MG in SODIUM CHLORIDE 0.9% 246 ML IV PRN (09:59)
[2018-08-03] MEDS: PANTOPRAZOLE 40 MG IV IVPush SCH (09:59)
[2018-08-03] MEDS: LEVOTHYROXINE 100 MCG INJ IVPush SCH (09:59)
[2018-08-03] MEDS: SODIUM CHLORIDE FLUSH 10ML SYR IVF SCH ×2 (10:00→20:12)
[2018-08-03] MEDS ORDERED: morphine SULFATE ORAL.CONC 20 MG/ML PO PRN (11:00)
[2018-08-03] MEDS ORDERED: OXYcodone IR 5MG TABLET PO PRN (11:00)
[2018-08-03] MEDS: ATORVASTATIN 10 MG TABLET PO SCH (20:12)
[2018-08-04] MEDS: INSULIN LISPRO 100 UNITS/ML, PEN SQ-INSULIN SCH ×5 (01:26→23:27)
[2018-08-04] MEDS: PROPOFOL 100 ML IV PRN (01:27)
[2018-08-04] MEDS: PIPERACILLIN/TAZO/PMX 2.25GM 50 ML IVPB SCH ×3 (01:27→17:11)
[2018-08-04] MEDS: ALBUTEROL/IPRATROPIUM 2.5MG/0.5MG, 3 ML INLINE SCH ×6 (02:38→22:23)
[2018-08-04] MEDS: NOREPINEPHRINE 4 MG in SODIUM CHLORIDE 0.9% 246 ML IV PRN ×2 (03:17→17:13)
[2018-08-04 05:09] LABS: MEAN CORPUSCULAR HEMOGLOBIN 34.5 pg (27.5-34.5); MEAN CORPUSCULAR HGB CONC 33.3 g/dL (33.2-36.2); MEAN CORPUSCULAR VOLUME 103.4 fL (81-97); MEAN PLATELET VOLUME 9.8 fL (7.4-10.4); RED BLOOD COUNT 3.36 x10^6/uL (4.38-5.82); RED CELL DISTRIBUTION WIDTH 19.6 % (9.4-14.8)
[2018-08-04 05:16] LABS: CHLORIDE 103 mmol/L (98-107)
[2018-08-04 05:23] LABS: PLATELET COUNT 33 x10^3/uL (130-400)
[2018-08-04 05:32] VITALS: BP 92/57
[2018-08-04 05:56] LABS: BASOPHILS # (AUTO) 0.01 x10^3/uL (0-0.1); BASOPHILS % (AUTO) 0 % (0-1); EOSINOPHILS # (AUTO) 0.01 x10^3/uL (0-0.4); EOSINOPHILS % (AUTO) 0 % (1-7); LYMPHOCYTES # (AUTO) 0.49 x10^3/uL (1-3.4); LYMPHOCYTES % (AUTO) 9 % (22-44); MD SCAN; MONOCYTES # (AUTO) 0.58 x10^3/uL (0.2-0.8); MONOCYTES % (AUTO) 10 % (2-9); NEUTROPHILS # (AUTO) 4.65 x10^3/uL (1.8-6.8); NEUTROPHILS % (AUTO) 81 % (42-75)
[2018-08-04 06:30] LABS: ALANINE AMINOTRANSFERASE 148 U/L (12-78); ALBUMIN 2.3 g/dL (3.4-5.0); ALKALINE PHOSPHATASE 49 U/L (45-117); ANION GAP 19 mmol/L (5-15); BILIRUBIN,TOTAL 3.5 mg/dL (0.2-1.0); CALCIUM 8.1 mg/dL (8.5-10.1); CREATININE 7.44 mg/dL (0.7-1.3); TOTAL PROTEIN 5.2 g/dL (6.4-8.2); VANCOMYCIN,RANDOM 10.5 mcg/mL
[2018-08-04] MEDS: PANTOPRAZOLE 40 MG IV IVPush SCH (08:59)
[2018-08-04] MEDS: SODIUM CHLORIDE FLUSH 10ML SYR IVF SCH ×2 (09:00→20:25)
[2018-08-04] MEDS: LEVOTHYROXINE 100 MCG INJ IVPush SCH (09:00)
[2018-08-04] MEDS ORDERED: CEFAZOLIN PMX 2GM/50ML 50 ML IVPB SCH (11:00)
[2018-08-04] MEDS: FENTANYL PF 100 MCG/2ML IVPush PRN ×2 (12:23→14:50)
[2018-08-04] MEDS: ATORVASTATIN 10 MG TABLET PO SCH (20:25)
[2018-08-05] MEDS: PIPERACILLIN/TAZO/PMX 2.25GM 50 ML IVPB SCH (02:04)
[2018-08-05] MEDS: ALBUTEROL/IPRATROPIUM 2.5MG/0.5MG, 3 ML INLINE SCH ×6 (02:37→22:00)
[2018-08-05] MEDS: PROPOFOL 100 ML IV PRN (04:28)
[2018-08-05 04:49] VITALS: BP 101/35
[2018-08-05 04:52] LABS: ANION GAP 10 mmol/L (5-15); CALCIUM 7.8 mg/dL (8.5-10.1); CHLORIDE 102 mmol/L (98-107); CREATININE 4.42 mg/dL (0.7-1.3)
[2018-08-05 04:53] LABS: TRIGLYCERIDES 296 mg/dL (50-200)
[2018-08-05 04:56] LABS: MEAN CORPUSCULAR HEMOGLOBIN 34.7 pg (27.5-34.5); MEAN CORPUSCULAR HGB CONC 33.7 g/dL (33.2-36.2); MEAN CORPUSCULAR VOLUME 103.1 fL (81-97); RED BLOOD COUNT 3.02 x10^6/uL (4.38-5.82); RED CELL DISTRIBUTION WIDTH 19.7 % (9.4-14.8)
[2018-08-05] MEDS: INSULIN LISPRO 100 UNITS/ML, PEN SQ-INSULIN SCH ×4 (05:14→23:04)
[2018-08-05 05:19] LABS: BASOPHILS # (AUTO) 0.01 x10^3/uL (0-0.1); BASOPHILS % (AUTO) 0 % (0-1); EOSINOPHILS # (AUTO) 0.02 x10^3/uL (0-0.4); EOSINOPHILS % (AUTO) 1 % (1-7); LYMPHOCYTES # (AUTO) 0.49 x10^3/uL (1-3.4); LYMPHOCYTES % (AUTO) 12 % (22-44); MD SCAN; MEAN PLATELET VOLUME 9.6 fL (7.4-10.4); MONOCYTES # (AUTO) 0.53 x10^3/uL (0.2-0.8); MONOCYTES % (AUTO) 13 % (2-9); NEUTROPHILS # (AUTO) 3.05 x10^3/uL (1.8-6.8); NEUTROPHILS % (AUTO) 75 % (42-75)
[2018-08-05 05:21] LABS: PLATELET COUNT 30 x10^3/uL (130-400)
[2018-08-05] MEDS: SODIUM CHLORIDE FLUSH 10ML SYR IVF SCH ×2 (09:00→21:00)
[2018-08-05] MEDS: LEVOTHYROXINE 100 MCG INJ IVPush SCH (10:43)
[2018-08-05] MEDS: PANTOPRAZOLE 40 MG IV IVPush SCH (10:43)
[2018-08-05] MEDS: FENTANYL PF 100 MCG/2ML IVPush PRN ×5 (14:06→22:57)
[2018-08-05] MEDS: NOREPINEPHRINE 4 MG in SODIUM CHLORIDE 0.9% 246 ML IV PRN (18:16)
[2018-08-05] MEDS: ATORVASTATIN 10 MG TABLET PO SCH (21:57)
[2018-08-06] MEDS: FENTANYL PF 100 MCG/2ML IVPush PRN ×8 (00:19→23:02)
[2018-08-06] MEDS: ALBUTEROL/IPRATROPIUM 2.5MG/0.5MG, 3 ML INLINE SCH ×6 (02:20→22:00)
[2018-08-06 04:44] LABS: MEAN CORPUSCULAR HGB CONC 34.1 g/dL (33.2-36.2); MEAN CORPUSCULAR VOLUME 102.6 fL (81-97); RED BLOOD COUNT 3.34 x10^6/uL (4.38-5.82); RED CELL DISTRIBUTION WIDTH 19.1 % (9.4-14.8)
[2018-08-06 04:54] LABS: ANION GAP 14 mmol/L (5-15); CHLORIDE 100 mmol/L (98-107); CREATININE 5.68 mg/dL (0.7-1.3)
[2018-08-06 05:06] LABS: BASOPHILS # (AUTO) 0.01 x10^3/uL (0-0.1); BASOPHILS % (AUTO) 0 % (0-1); EOSINOPHILS # (AUTO) 0.03 x10^3/uL (0-0.4); EOSINOPHILS % (AUTO) 1 % (1-7); LYMPHOCYTES # (AUTO) 0.54 x10^3/uL (1-3.4); LYMPHOCYTES % (AUTO) 13 % (22-44); MEAN PLATELET VOLUME 9.8 fL (7.4-10.4); MONOCYTES # (AUTO) 0.46 x10^3/uL (0.2-0.8); MONOCYTES % (AUTO) 11 % (2-9); NEUTROPHILS # (AUTO) 3.19 x10^3/uL (1.8-6.8); NEUTROPHILS % (AUTO) 75 % (42-75)
[2018-08-06 05:10] LABS: PLATELET COUNT 22 x10^3/uL (130-400)
[2018-08-06 05:12] LABS: MD SCAN
[2018-08-06] MEDS: INSULIN LISPRO 100 UNITS/ML, PEN SQ-INSULIN SCH ×4 (05:12→22:59)
[2018-08-06] MEDS: SODIUM CHLORIDE FLUSH 10ML SYR IVF SCH ×2 (07:55→21:29)
[2018-08-06] MEDS: PANTOPRAZOLE 40 MG IV IVPush SCH (09:51)
[2018-08-06] MEDS: LEVOTHYROXINE 100 MCG INJ IVPush SCH (09:51)
[2018-08-06] MEDS: PROPOFOL 100 ML IV PRN (14:24)
[2018-08-06] MEDS: ATORVASTATIN 10 MG TABLET PO SCH (21:28)
[2018-08-07] MEDS: FENTANYL PF 100 MCG/2ML IVPush PRN ×8 (01:01→14:51)
[2018-08-07] MEDS: NOREPINEPHRINE 4 MG in SODIUM CHLORIDE 0.9% 246 ML IV PRN (01:02)
[2018-08-07] MEDS: ALBUTEROL/IPRATROPIUM 2.5MG/0.5MG, 3 ML INLINE SCH ×6 (02:15→22:30)
[2018-08-07] MEDS: PROPOFOL 100 ML IV PRN ×2 (04:11→17:02)
[2018-08-07] MEDS: INSULIN LISPRO 100 UNITS/ML, PEN SQ-INSULIN SCH ×4 (05:45→23:56)
[2018-08-07 05:49] LABS: CHLORIDE 100 mmol/L (98-107); MEAN CORPUSCULAR HEMOGLOBIN 35.1 pg (27.5-34.5); MEAN CORPUSCULAR HGB CONC 34.2 g/dL (33.2-36.2); MEAN CORPUSCULAR VOLUME 102.5 fL (81-97); RED BLOOD COUNT 3.05 x10^6/uL (4.38-5.82); RED CELL DISTRIBUTION WIDTH 18.8 % (9.4-14.8)
[2018-08-07 05:56] LABS: PLATELET COUNT 27 x10^3/uL (130-400)
[2018-08-07 05:58] LABS: ANION GAP 10 mmol/L (5-15); CALCIUM 8.9 mg/dL (8.5-10.1); CREATININE 3.81 mg/dL (0.7-1.3)
[2018-08-07 06:10] LABS: BASOPHILS # (AUTO) 0.04 x10^3/uL (0-0.1); BASOPHILS % (AUTO) 1 % (0-1); EOSINOPHILS % (AUTO) 2 % (1-7); LYMPHOCYTES # (AUTO) 0.92 x10^3/uL (1-3.4); LYMPHOCYTES % (AUTO) 18 % (22-44); MD SCAN; MONOCYTES # (AUTO) 0.49 x10^3/uL (0.2-0.8); MONOCYTES % (AUTO) 10 % (2-9); NEUTROPHILS # (AUTO) 3.66 x10^3/uL (1.8-6.8); NEUTROPHILS % (AUTO) 70 % (42-75)
[2018-08-07] MEDS ORDERED: SODIUM PHOSPHATE 30 MMOL in SODIUM CHLORIDE 0.9% 500 ML IV ONE (07:00)
[2018-08-07] MEDS ORDERED: SODIUM PHOSPHATE 4 MEQ/ML IV SCH (07:00)
[2018-08-07] MEDS: PANTOPRAZOLE 40 MG IV IVPush SCH (08:28)
[2018-08-07] MEDS: LEVOTHYROXINE 100 MCG INJ IVPush SCH (08:28)
[2018-08-07] MEDS: SODIUM CHLORIDE FLUSH 10ML SYR IVF SCH ×2 (08:28→21:22)
[2018-08-07] MEDS: FENTANYL PF 2,500 MCG in SODIUM CHLORIDE 0.9% 200 ML IV PRN (17:02)
[2018-08-07] MEDS: ATORVASTATIN 10 MG TABLET PO SCH (21:22)
[2018-08-08] MEDS: ALBUTEROL/IPRATROPIUM 2.5MG/0.5MG, 3 ML INLINE SCH ×6 (02:15→22:35)
[2018-08-08 05:16] LABS: MEAN CORPUSCULAR HEMOGLOBIN 35.2 pg (27.5-34.5); MEAN CORPUSCULAR HGB CONC 34.1 g/dL (33.2-36.2); MEAN CORPUSCULAR VOLUME 103.2 fL (81-97); RED CELL DISTRIBUTION WIDTH 18.9 % (9.4-14.8)
[2018-08-08] MEDS: INSULIN LISPRO 100 UNITS/ML, PEN SQ-INSULIN SCH ×4 (05:27→22:07)
[2018-08-08 05:30] LABS: ANION GAP 10 mmol/L (5-15); CALCIUM 7.9 mg/dL (8.5-10.1); CHLORIDE 102 mmol/L (98-107)
[2018-08-08 05:31] LABS: CREATININE 4.49 mg/dL (0.7-1.3); TRIGLYCERIDES 167 mg/dL (50-200)
[2018-08-08 05:50] LABS: BASOPHILS # (AUTO) 0.01 x10^3/uL (0-0.1); BASOPHILS % (AUTO) 0 % (0-1); EOSINOPHILS # (AUTO) 0.17 x10^3/uL (0-0.4); EOSINOPHILS % (AUTO) 3 % (1-7); LYMPHOCYTES # (AUTO) 0.74 x10^3/uL (1-3.4); LYMPHOCYTES % (AUTO) 15 % (22-44); MD SCAN; MEAN PLATELET VOLUME 10.1 fL (7.4-10.4); MONOCYTES # (AUTO) 0.55 x10^3/uL (0.2-0.8); MONOCYTES % (AUTO) 11 % (2-9); NEUTROPHILS # (AUTO) 3.62 x10^3/uL (1.8-6.8); NEUTROPHILS % (AUTO) 71 % (42-75)
[2018-08-08 05:54] LABS: PLATELET COUNT 26 x10^3/uL (130-400)
[2018-08-08] MEDS ORDERED: SODIUM PHOSPHATE 4 MEQ/ML IV SCH (07:30)
[2018-08-08] MEDS ORDERED: SODIUM PHOSPHATE 30 MMOL in SODIUM CHLORIDE 0.9% 500 ML IV ONE (08:00)
--- NOTE | 2018-08-08 09:45 | NUR ---
08/08 TF GOAL: w/ propofol: OSMOLITE 1.2 @ 50ML/HR off propofol: OSMOLITE 1.2 @ 55ML/HR
[2018-08-08] MEDS: LEVOTHYROXINE 100 MCG INJ IVPush SCH (10:23)
[2018-08-08] MEDS: PANTOPRAZOLE 40 MG IV IVPush SCH (10:23)
[2018-08-08] MEDS: SODIUM CHLORIDE FLUSH 10ML SYR IVF SCH ×2 (10:24→21:58)
[2018-08-08] MEDS: PROPOFOL 100 ML IV PRN (11:29)
[2018-08-08] MEDS: NOREPINEPHRINE 4 MG in SODIUM CHLORIDE 0.9% 246 ML IV PRN (19:38)
[2018-08-08] MEDS: ATORVASTATIN 10 MG TABLET PO SCH (21:57)
[2018-08-09] MEDS: PROPOFOL 100 ML IV PRN ×2 (01:05→13:22)
[2018-08-09] MEDS: ALBUTEROL/IPRATROPIUM 2.5MG/0.5MG, 3 ML INLINE SCH ×6 (02:37→22:34)
[2018-08-09] MEDS: INSULIN LISPRO 100 UNITS/ML, PEN SQ-INSULIN SCH ×4 (05:00→23:02)
[2018-08-09 05:44] LABS: MEAN CORPUSCULAR HEMOGLOBIN 34.1 pg (27.5-34.5); MEAN CORPUSCULAR HGB CONC 32.6 g/dL (33.2-36.2); MEAN CORPUSCULAR VOLUME 104.3 fL (81-97); MEAN PLATELET VOLUME 10.2 fL (7.4-10.4); RED BLOOD COUNT 3.66 x10^6/uL (4.38-5.82); RED CELL DISTRIBUTION WIDTH 18.7 % (9.4-14.8)
[2018-08-09 05:45] LABS: PLATELET COUNT 40 x10^3/uL (130-400)
[2018-08-09 05:52] LABS: ALBUMIN 2.3 g/dL (3.4-5.0); ANION GAP 8 mmol/L (5-15); CALCIUM 7.5 mg/dL (8.5-10.1); CHLORIDE 99 mmol/L (98-107); CREATININE 3.06 mg/dL (0.7-1.3)
[2018-08-09 06:09] LABS: BASOPHILS # (AUTO) 0.02 x10^3/uL (0-0.1); BASOPHILS % (AUTO) 0 % (0-1); EOSINOPHILS # (AUTO) 0.18 x10^3/uL (0-0.4); EOSINOPHILS % (AUTO) 2 % (1-7); LYMPHOCYTES # (AUTO) 1.05 x10^3/uL (1-3.4); LYMPHOCYTES % (AUTO) 13 % (22-44); MD MORPH REVIEW ONLY; MONOCYTES % (AUTO) 9 % (2-9); NEUTROPHILS # (AUTO) 5.87 x10^3/uL (1.8-6.8); NEUTROPHILS % (AUTO) 75 % (42-75)
[2018-08-09 06:12] LABS: ANISOCYTOSIS 1+
[2018-08-09 06:13] LABS: <PLATELET ESTIMATE> DECREASED; <PLT MORPHOLOGY> NORMAL PLT MORPH; POLYCHROMASIA 1+
[2018-08-09] MEDS: PANTOPRAZOLE 40 MG IV IVPush SCH (08:43)
[2018-08-09] MEDS: LEVOTHYROXINE 100 MCG INJ IVPush SCH (08:44)
[2018-08-09] MEDS: SODIUM CHLORIDE FLUSH 10ML SYR IVF SCH ×2 (08:44→21:16)
[2018-08-09] MEDS: NOREPINEPHRINE 4 MG in SODIUM CHLORIDE 0.9% 246 ML IV PRN ×2 (11:15→23:05)
[2018-08-09] MEDS: FENTANYL PF 2,500 MCG in SODIUM CHLORIDE 0.9% 200 ML IV PRN (17:38)
[2018-08-09] MEDS: ATORVASTATIN 10 MG TABLET PO SCH (21:14)
[2018-08-10] MEDS: ALBUTEROL/IPRATROPIUM 2.5MG/0.5MG, 3 ML INLINE SCH ×6 (02:20→22:40)
[2018-08-10] MEDS: INSULIN LISPRO 100 UNITS/ML, PEN SQ-INSULIN SCH ×4 (04:40→23:14)
[2018-08-10 05:11] LABS: ANION GAP 8 mmol/L (5-15); CHLORIDE 97 mmol/L (98-107); MEAN CORPUSCULAR HEMOGLOBIN 34.7 pg (27.5-34.5); MEAN CORPUSCULAR HGB CONC 33.8 g/dL (33.2-36.2); MEAN CORPUSCULAR VOLUME 102.8 fL (81-97); MEAN PLATELET VOLUME 10.2 fL (7.4-10.4); PLATELET COUNT 66 x10^3/uL (130-400); RED BLOOD COUNT 3.01 x10^6/uL (4.38-5.82); RED CELL DISTRIBUTION WIDTH 18.4 % (9.4-14.8)
[2018-08-10 05:40] LABS: BASOPHILS # (AUTO) 0.04 x10^3/uL (0-0.1); BASOPHILS % (AUTO) 1 % (0-1); EOSINOPHILS % (AUTO) 3 % (1-7); LYMPHOCYTES # (AUTO) 0.75 x10^3/uL (1-3.4); LYMPHOCYTES % (AUTO) 10 % (22-44); MD SCAN; MONOCYTES # (AUTO) 0.81 x10^3/uL (0.2-0.8); MONOCYTES % (AUTO) 11 % (2-9); NEUTROPHILS # (AUTO) 5.79 x10^3/uL (1.8-6.8); NEUTROPHILS % (AUTO) 76 % (42-75)
[2018-08-10] MEDS: LEVOTHYROXINE 100 MCG INJ IVPush SCH (07:55)
[2018-08-10] MEDS: PANTOPRAZOLE 40 MG IV IVPush SCH (07:55)
[2018-08-10] MEDS: SODIUM CHLORIDE FLUSH 10ML SYR IVF SCH ×2 (07:56→21:04)
[2018-08-10] MEDS: PROPOFOL 100 ML IV PRN (17:50)
[2018-08-10] MEDS: ATORVASTATIN 10 MG TABLET PO SCH (21:04)
[2018-08-11] MEDS: ALBUTEROL/IPRATROPIUM 2.5MG/0.5MG, 3 ML INLINE SCH ×6 (03:35→22:20)
[2018-08-11] MEDS: INSULIN LISPRO 100 UNITS/ML, PEN SQ-INSULIN SCH ×4 (04:42→21:21)
[2018-08-11 05:05] LABS: ALBUMIN 2.2 g/dL (3.4-5.0); ANION GAP 11 mmol/L (5-15); CALCIUM 8.1 mg/dL (8.5-10.1); CHLORIDE 97 mmol/L (98-107)
[2018-08-11 05:08] LABS: CREATININE 4.87 mg/dL (0.7-1.3); TRIGLYCERIDES 151 mg/dL (50-200)
[2018-08-11 05:09] LABS: MEAN CORPUSCULAR HEMOGLOBIN 35.4 pg (27.5-34.5); MEAN CORPUSCULAR HGB CONC 34.4 g/dL (33.2-36.2); MEAN CORPUSCULAR VOLUME 102.8 fL (81-97); MEAN PLATELET VOLUME 9.1 fL (7.4-10.4); PLATELET COUNT 59 x10^3/uL (130-400); RED BLOOD COUNT 2.63 x10^6/uL (4.38-5.82); RED CELL DISTRIBUTION WIDTH 18.2 % (9.4-14.8)
[2018-08-11] MEDS: PROPOFOL 100 ML IV PRN (05:35)
[2018-08-11 05:55] LABS: BASOPHILS # (AUTO) 0.02 x10^3/uL (0-0.1); BASOPHILS % (AUTO) 1 % (0-1); EOSINOPHILS % (AUTO) 4 % (1-7); LYMPHOCYTES # (AUTO) 0.84 x10^3/uL (1-3.4); LYMPHOCYTES % (AUTO) 16 % (22-44); MD SCAN; MONOCYTES # (AUTO) 0.51 x10^3/uL (0.2-0.8); MONOCYTES % (AUTO) 10 % (2-9); NEUTROPHILS # (AUTO) 3.78 x10^3/uL (1.8-6.8); NEUTROPHILS % (AUTO) 71 % (42-75)
[2018-08-11] MEDS: PANTOPRAZOLE 40 MG IV IVPush SCH (08:13)
[2018-08-11] MEDS: SODIUM CHLORIDE FLUSH 10ML SYR IVF SCH ×2 (08:13→21:22)
[2018-08-11] MEDS: LEVOTHYROXINE 100 MCG INJ IVPush SCH (08:14)
[2018-08-11] MEDS: NOREPINEPHRINE 4 MG in SODIUM CHLORIDE 0.9% 246 ML IV PRN (11:51)
[2018-08-11] MEDS ORDERED: CEFAZOLIN PMX 2GM/50ML 50 ML IVPB SCH (13:13)
--- NOTE | 2018-08-11 16:43 | NUR ---
Updated TF Recommendations: ON propofol: Nepro @ 30 ml/hr OFF propofol: Nepro @ 35 ml/hr
[2018-08-11] MEDS: FENTANYL PF 2,500 MCG in SODIUM CHLORIDE 0.9% 200 ML IV PRN (19:30)
[2018-08-11] MEDS: ATORVASTATIN 10 MG TABLET PO SCH (21:20)
[2018-08-12] MEDS: NOREPINEPHRINE 4 MG in SODIUM CHLORIDE 0.9% 246 ML IV PRN ×4 (01:28→21:25)
[2018-08-12] MEDS: ALBUTEROL/IPRATROPIUM 2.5MG/0.5MG, 3 ML INLINE SCH ×6 (02:49→23:05)
[2018-08-12] MEDS: INSULIN LISPRO 100 UNITS/ML, PEN SQ-INSULIN SCH ×4 (05:32→23:00)
[2018-08-12 06:03] LABS: ANION GAP 7 mmol/L (5-15); CALCIUM 8.4 mg/dL (8.5-10.1); CHLORIDE 97 mmol/L (98-107); CREATININE 3.43 mg/dL (0.7-1.3)
[2018-08-12 06:08] LABS: BASOPHILS # (AUTO) 0.02 x10^3/uL (0-0.1); BASOPHILS % (AUTO) 0 % (0-1); EOSINOPHILS # (AUTO) 0.12 x10^3/uL (0-0.4); EOSINOPHILS % (AUTO) 2 % (1-7); LYMPHOCYTES # (AUTO) 0.99 x10^3/uL (1-3.4); LYMPHOCYTES % (AUTO) 14 % (22-44); MD NO; MEAN CORPUSCULAR VOLUME 102.9 fL (81-97); MEAN PLATELET VOLUME 10.3 fL (7.4-10.4); MONOCYTES # (AUTO) 0.72 x10^3/uL (0.2-0.8); MONOCYTES % (AUTO) 10 % (2-9); NEUTROPHILS # (AUTO) 5.22 x10^3/uL (1.8-6.8); NEUTROPHILS % (AUTO) 74 % (42-75); PLATELET COUNT 103 x10^3/uL (130-400); RED BLOOD COUNT 2.79 x10^6/uL (4.38-5.82); RED CELL DISTRIBUTION WIDTH 17.8 % (9.4-14.8)
[2018-08-12] MEDS: LEVOTHYROXINE 100 MCG INJ IVPush SCH (08:52)
[2018-08-12] MEDS: PANTOPRAZOLE 40 MG IV IVPush SCH (08:53)
[2018-08-12] MEDS: SODIUM CHLORIDE FLUSH 10ML SYR IVF SCH ×2 (08:53→21:26)
[2018-08-12] MEDS: ACETAMINOPHEN 650 MG/20.3 ML UDC NG PRN ×2 (14:30→21:30)
[2018-08-12] MEDS: PROPOFOL 100 ML IV PRN (17:58)
[2018-08-12] MEDS: FENTANYL PF 100 MCG/2ML IVPush PRN (18:11)
[2018-08-12] MEDS: ATORVASTATIN 10 MG TABLET PO SCH (21:25)
[2018-08-13] MEDS: ALBUTEROL/IPRATROPIUM 2.5MG/0.5MG, 3 ML INLINE SCH ×4 (03:15→15:25)
[2018-08-13 05:26] LABS: BASOPHILS # (AUTO) 0.05 x10^3/uL (0-0.1); BASOPHILS % (AUTO) 1 % (0-1); EOSINOPHILS # (AUTO) 0.28 x10^3/uL (0-0.4); EOSINOPHILS % (AUTO) 3 % (1-7); LYMPHOCYTES # (AUTO) 1.45 x10^3/uL (1-3.4); LYMPHOCYTES % (AUTO) 15 % (22-44); MD NO; MEAN CORPUSCULAR HEMOGLOBIN 35.6 pg (27.5-34.5); MEAN CORPUSCULAR HGB CONC 34.6 g/dL (33.2-36.2); MEAN CORPUSCULAR VOLUME 102.7 fL (81-97); MONOCYTES # (AUTO) 0.72 x10^3/uL (0.2-0.8); MONOCYTES % (AUTO) 7 % (2-9); NEUTROPHILS # (AUTO) 7.28 x10^3/uL (1.8-6.8); NEUTROPHILS % (AUTO) 75 % (42-75); PLATELET COUNT 106 x10^3/uL (130-400); RED BLOOD COUNT 2.39 x10^6/uL (4.38-5.82); RED CELL DISTRIBUTION WIDTH 17.4 % (9.4-14.8)
[2018-08-13 05:35] LABS: ALANINE AMINOTRANSFERASE 8 U/L (12-78); ALBUMIN 2.3 g/dL (3.4-5.0); ANION GAP 14 mmol/L (5-15); BILIRUBIN, DIRECT 2.6 mg/dL (0.1-0.2); CALCIUM 8.5 mg/dL (8.5-10.1); CHLORIDE 99 mmol/L (98-107); CREATININE 4.52 mg/dL (0.7-1.3)
[2018-08-13 05:37] LABS: ALKALINE PHOSPHATASE 202 U/L (45-117); BILIRUBIN,INDIRECT 0.5 mg/dL (0.0-2.0); BILIRUBIN,TOTAL 3.1 mg/dL (0.2-1.0); TOTAL PROTEIN 6.7 g/dL (6.4-8.2)
[2018-08-13] MEDS: PROPOFOL 100 ML IV PRN (05:54)
[2018-08-13] MEDS: NOREPINEPHRINE 4 MG in SODIUM CHLORIDE 0.9% 246 ML IV PRN ×4 (05:54→16:10)
[2018-08-13] MEDS: INSULIN LISPRO 100 UNITS/ML, PEN SQ-INSULIN SCH ×2 (05:56→11:00)
[2018-08-13] MEDS ORDERED: CEFAZOLIN PMX 2GM/50ML 50 ML IVPB ONE (12:00)
[2018-08-13] MEDS: PANTOPRAZOLE 40 MG IV IVPush SCH (12:17)
[2018-08-13] MEDS: SODIUM CHLORIDE FLUSH 10ML SYR IVF SCH (12:17)
[2018-08-13] MEDS: LEVOTHYROXINE 100 MCG INJ IVPush SCH (12:18)
[2018-08-13] MEDS: FENTANYL PF 100 MCG/2ML IVPush PRN (12:18)
== END 2018-08-13 23:24 | disposition expired | DRG 870 ==
LOC: ED 10:27 → EDIP 14:01 → CCU 17:42 → ICU 07-31 07:31 → 5SO 08-01 14:28 → CCU 08-02 13:30
PROVIDERS: ADMIT Internal Medicine; ATTEND Internal Medicine
PROC: 0BH17EZ Insertion of Endotracheal Airway into Trachea, Via Natural or Artificial Opening (ICD-10-PCS; principal; 2018-08-02)
PROC: 5A1955Z Respiratory Ventilation, Greater than 96 Consecutive Hours (ICD-10-PCS; 2018-08-02)
PROC: 02HV33Z Insertion of Infusion Device into Superior Vena Cava, Percutaneous Approach (ICD-10-PCS; 2018-08-02)
PROC: B548ZZA Ultrasonography of Superior Vena Cava, Guidance (ICD-10-PCS; 2018-08-02)
PROC: 02HV33Z Insertion of Infusion Device into Superior Vena Cava, Percutaneous Approach (ICD-10-PCS; 2018-08-11)
PROC: B548ZZA Ultrasonography of Superior Vena Cava, Guidance (ICD-10-PCS; 2018-08-11)
DX: A41.01 Sepsis due to Methicillin susceptible Staphylococcus aureus (principal); N18.6 End stage renal disease; E43 Unspecified severe protein-calorie malnutrition; G93.41 Metabolic encephalopathy; I21.19 ST elevation (STEMI) myocardial infarction involving other coronary artery of inferior wall; I33.0 Acute and subacute infective endocarditis; I50.43 Acute on chronic combined systolic (congestive) and diastolic (congestive) heart failure; J96.20 Acute and chronic respiratory failure, unspecified whether with hypoxia or hypercapnia; K76.7 Hepatorenal syndrome; R65.21 Severe sepsis with septic shock; D61.818 Other pancytopenia; E87.2 Acidosis; I13.2 Hypertensive heart and chronic kidney disease with heart failure and with stage 5 chronic kidney disease, or end stage renal disease; Z99.11 Dependence on respirator [ventilator] status; Z68.1 Body mass index [BMI] 19.9 or less, adult; E11.649 Type 2 diabetes mellitus with hypoglycemia without coma; E11.51 Type 2 diabetes mellitus with diabetic peripheral angiopathy without gangrene; Z79.4 Long term (current) use of insulin; Z99.2 Dependence on renal dialysis; Z66 Do not resuscitate; D63.1 Anemia in chronic kidney disease; E03.9 Hypothyroidism, unspecified; E11.22 Type 2 diabetes mellitus with diabetic chronic kidney disease; E11.65 Type 2 diabetes mellitus with hyperglycemia; E78.5 Hyperlipidemia, unspecified; E83.39 Other disorders of phosphorus metabolism; G24.9 Dystonia, unspecified; G40.909 Epilepsy, unspecified, not intractable, without status epilepticus; G89.29 Other chronic pain; I08.3 Combined rheumatic disorders of mitral, aortic and tricuspid valves; I25.10 Atherosclerotic heart disease of native coronary artery without angina pectoris; I25.5 Ischemic cardiomyopathy; I25.2 Old myocardial infarction; I27.20 Pulmonary hypertension, unspecified; I95.3 Hypotension of hemodialysis; K31.89 Other diseases of stomach and duodenum; K72.90 Hepatic failure, unspecified without coma; N25.0 Renal osteodystrophy; Z51.5 Encounter for palliative care; Z74.01 Bed confinement status; Z79.891 Long term (current) use of opiate analgesic; Z86.19 Personal history of other infectious and parasitic diseases; Z87.891 Personal history of nicotine dependence; Z89.412 Acquired absence of left great toe; Z89.511 Acquired absence of right leg below knee; Z89.512 Acquired absence of left leg below knee; Z91.14 Patient's other noncompliance with medication regimen; Z91.19 Patient's noncompliance with other medical treatment and regimen
CPT/HCPCS: 36415; 36569; 36600; 70450; 71045; 74177; 76937; 77001; 80048; 80053; 80069; 80202; 82010; 82040; 82140; 82247; 82248; 82306; 82533; 82542; 82550; 82607; 82728; 82803; 82947; 82962; 83036; 83540; 83550; 83605; 83690; 83735; 83970; 84100; 84439; 84443; 84478; 84481; 84484; 84550; 85025; 86704; 86706; 86803; 87040; 87070; 87077; 87081; 87147; 87186; 87205; 87324; 87340; 93005; 93306; 93970; 94002; 94003; 94640; 96372; 96374; 96375; 99291; G0378; J0690; J1953; J2250; J2543; J2704; J3010; J3370; J3490; J7620; P9047; Q0162; Q9967; C1751; C9113; J1610; J1815; J2270; J3475; J7030; J7040; J7050; J7120